=== PATIENT | male | born 1945 | race Caucasian/White ===

== ENCOUNTER 2021-09-15 13:50 | Outpatient (CLI) | payer OTHER, SELFPAY ==
--- NOTE | ~2021-09-15 | CT_ITS ---
EXAMINATION: CT lung screening DATE: 09/15/2021 14:08 INDICATION: Personal history of nicotine dependence, current smoker with 40 pack year history TECHNIQUE: Computed tomography (CT) of the chest was performed without intravenous contrast. The dose -length product (DLP) was 92.09 mGy-cm. Automated exposure control and iterative reconstruction techn [employer] were employed. COMPARISON: None FINDINGS: There is a 7 mm nodule of the right lower lobe which may be associated with an accessory fi ssure. A 3 mm nodule of the right middle lobe is associated with the minor fissure. There is mild emp hysema. Dependent atelectasis is noted. The lungs are free of focal airspace opacities. There is mild emphysema. No pleural effusion or pneumothorax. No pathologically enlarged thoracic lymph nodes are identified. The heart size is normal. There is calcified coronary artery atherosclerosis. There is mo derate thoracic spondylosis. IMPRESSION: 1. Lung-RADS category 3: Probably benign. Followup with noncontrast low-dose chest CT in 6 months is recommended. Reviewed, dictated and finalized at location A. IMPRESSION: 1. Lung-RADS category 3: Probably benign. Followup with noncontrast low-dose est CT in 6 months is recommended.
== END 2021-09-15 13:51 | disposition home or self-care (01) ==
PROVIDERS: PCP Family Medicine; Visit Provider Family Medicine
DX: Z12.2 Encounter for screening for malignant neoplasm of respiratory organs (principal); Z87.891 Personal history of nicotine dependence
CPT/HCPCS: 71271

== ENCOUNTER 2021-10-27 10:28 | Outpatient (CLI) | payer OTHER, SELFPAY ==
[2021-10-27 20:01] LABS: Hemoglobin A1C 5.7 % (<5.7)
== END 2021-10-27 10:29 | disposition home or self-care (01) ==
LOC: ANHGOSHLAB 10:29
PROVIDERS: PCP Family Medicine; Visit Provider Family Medicine
DX: R73.01 Impaired fasting glucose (principal)
CPT/HCPCS: 36415; 83036

== ENCOUNTER 2021-10-29 01:23 | Day surgery (SDC) | payer OTHER, SELFPAY ==
[2021-10-16 15:01] VITALS: BMI 25.1
[2021-10-29 08:13] VITALS: BMI 24.2
[2021-10-29 08:15] VITALS: BP 122/59; PULSE 85; RESP 18; TEMP 36.4; O2SAT 97
[2021-10-29] MEDS: LACTATED RINGERS 1,000 ML 150 ML IV CONT (08:24)
--- NOTE | 2021-10-29 08:39 | WPDANESEPPF ---
Anes - Initial Pre Proc Eval Procedure: Operation Date: 10/29/21 09:30 Proposed Procedures p Screening Colonoscopy - Joni Koo MD Date/Time: 10/29/21 08:39 Surgeon: Joni Koo MD Pre Op Diagnosis: neoplasm screening Patient Data Age: 76 Gender: M Height: 1.73 m Weight: 72.2 kg Last Vital Signs Temp 97.5 F L 10/29/21 08:15 Pulse 85 10/29/21 08:15 Resp 18 10/29/21 08:15 BP 122/59 L 10/29/21 08:15 Pulse Ox 97 10/29/21 08:15 Allergies Allergy/AdvReac Type Severity Reaction Status Date / Time No Known Allergies Allergy Verified 10/27/21 10:20 Home Medications Medication Instructions Recorded Confirmed Type cetirizine 10 mg tablet (Zyrtec) 10 mg PO HS 09/07/21 10/27/21 History meloxicam 15 mg tablet 15 mg PO DAILY 09/07/21 10/27/21 History tamsulosin 0.4 mg capsule 0.4 mg PO DAILY #30 caps 09/08/21 10/27/21 Rx atorvastatin 20 mg tablet 20 mg PO DAILY #30 tabs 09/22/21 10/27/21 Rx acetaminophen 500 mg capsule 500 mg PO HS 10/16/21 10/27/21 History Patient hx anesthesia problems: none Family hx anesthesia problems: none Results Review: All pre-operative results and documents have been reviewed as part of the pre-operative evaluation. [facility], LAT[facility] Past Medical History Medical History Allergies Arthritis Family History Family History Sibling Cancer Mother Hypertension Social History Social History Smoking packs per day: 0.5 Smoking cigarettes per day: 10.0 Years smoked: 50 Smoking pack-years: 25.00 Smoking status: Current every day smoker Tobacco type: cigarettes Alcohol intake: current Drinks per week: 1 Alcohol use details: Beer or Wine Substance use: never Substance use type: does not use Living arrangements: with family Gender identity (if verbalized by the patient): Male Sexual Orientation (if Verbalized by the Patient): Straight or Heterosexual Spiritual care concerns: No Anes - Eval Final PreProcedure Day of Procedure 10/29/21 08:39 Patient weight: normal Heart: regular rate and rhythm Lungs: clear to auscultation Airway: Mallampati scale class II Neurological: alert and oriented Last oral intake: >/= 8 hours ASA classification: II Emergent: no Anesthetic plan: proceed Anesthesia type and monitoring: general GIVS and standard monitoring Results Review: All pre-operative results and documents have been reviewed as part of the pre-operative evaluation. Informed Consent: The patient's anesthetic plan and its attendant risks and benefits were discussed with the patient/family/POA. Questions were solicited and answers provided to the satisfaction of the patient/family/POA.
--- NOTE | 2021-10-29 08:49 | PM.HPGS ---
History of Present Illness History of Present Illness Consent: Risks, benefits, and alternatives have been discussed and questions answered. Patient agrees to proceed with procedure. Chief complaint: neoplasm screening Narrative: Antoine Vaca is a 76 year old male referred for colon cancer screening. Review of Systems Review of Systems: All systems reviewed & are unremarkable except as noted in HPI and below PMFSH Past Medical History Medical History Allergies Arthritis Family History Family History Sibling Cancer Mother Hypertension Social History Social History Smoking packs per day: 0.5 Smoking cigarettes per day: 10.0 Years smoked: 50 Smoking pack-years: 25.00 Smoking status: Current every day smoker Tobacco type: cigarettes Alcohol intake: current Drinks per week: 1 Alcohol use details: Beer or Wine Substance use: never Substance use type: does not use Living arrangements: with family Gender identity (if verbalized by the patient): Male Sexual Orientation (if Verbalized by the Patient): Straight or Heterosexual Spiritual care concerns: No Meds Home Medications and Allergies Home Medications Medication Instructions Recorded Confirmed Type cetirizine 10 mg tablet (Zyrtec) 10 mg PO HS 09/07/21 10/27/21 History meloxicam 15 mg tablet 15 mg PO DAILY 09/07/21 10/27/21 History tamsulosin 0.4 mg capsule 0.4 mg PO DAILY #30 caps 09/08/21 10/27/21 Rx atorvastatin 20 mg tablet 20 mg PO DAILY #30 tabs 09/22/21 10/27/21 Rx acetaminophen 500 mg capsule 500 mg PO HS 10/16/21 10/27/21 History Allergies Allergy/AdvReac Type Severity Reaction Status Date / Time No Known Allergies Allergy Verified 10/27/21 10:20 Vital Signs Vital Signs - 24 hr 10/29/21 08:15 Temperature 36.4 C L Pulse Rate 85 Respiratory Rate 18 Blood Pressure 122/59 L Pulse Oximetry 97 Exam Resp: Auscultation: clear to auscultation bilaterally Cardio: Rate: regular rate Rhythm: regular rhythm GI: GI Palp: Yes Soft to palpation and No Tenderness to palpation present (GI) Assessment and Plan Assessment and plan (1) Colon cancer screening: Code(s): Z12.11 - Encounter for screening for malignant neoplasm of colon Status: Acute Assessment and Plan: Colonoscopy with possible biopsy or polypectomy or cautery or injection of substances.
[2021-10-29 09:45] VITALS: BP 101/41; PULSE 60; RESP 17; O2SAT 94
[2021-10-29 09:55] VITALS: BP 119/64; PULSE 65; RESP 18; O2SAT 94
[2021-10-29 10:05] VITALS: BP 138/73; PULSE 67; RESP 24; O2SAT 95
== END 2021-10-29 10:14 | disposition home or self-care (01) ==
PROVIDERS: PCP Family Medicine; Visit Provider Internal Medicine Gastroenterology
PROC: 0DJD8ZZ Inspection of Lower Intestinal Tract, Via Natural or Artificial Opening Endoscopic (ICD-10-PCS; CPT 45378; principal; 2021-10-29 09:30)
DX: Z12.11 Encounter for screening for malignant neoplasm of colon (principal); D12.8 Benign neoplasm of rectum; K64.8 Other hemorrhoids; K57.30 Diverticulosis of large intestine without perforation or abscess without bleeding; F17.210 Nicotine dependence, cigarettes, uncomplicated
CPT/HCPCS: 45380; 88305; J7120

== ENCOUNTER → 2022-03-30 10:09 | Outpatient (CLI) | payer OTHER, SELFPAY ==
--- NOTE | ~2022-03-30 | XR_ITS ---
EXAM: XR hip RT min 2V DATE: 03/30/2022 10:20 HISTORY: no injury right hip pain for several months . COMPARISON: 02/28/2013. FINDINGS: Normal mineralization. No fracture or dislocation. No lytic or blastic lesion. Degenerativ e changes in the lower lumbar spine. Mild right hip osteoarthritis. Scattered hip and pelvic enthesop athy. Old healed right pubic bone fracture. No erosion or periosteal change. Soft tissues within norm al limits. IMPRESSION: No acute osseous finding in the right hip. Reviewed, dictated and finalized at location K. SOLUTION ARCHITECT
== END ==
PROVIDERS: PCP Family Medicine; Visit Provider Family Medicine
DX: M25.551 Pain in right hip (principal)
CPT/HCPCS: 73502

== ENCOUNTER 2022-10-04 11:27 | Outpatient (CLI) | payer OTHER, SELFPAY ==
[2022-10-04 13:56] LABS: Alanine Aminotransferase 23 U/L (6-50); Albumin Level 4.1 g/dL (3.5-5.1); Alkaline Phosphatase 77 U/L (38-126); Anion Gap 6 mmol/L (8-16); Aspartate Amino Transferase 37 U/L (17-59); Bilirubin,Total 0.6 mg/dL (0.2-1.3); Blood Urea Nitrogen 16 mg/dL (9-20); Calcium 8.7 mg/dL (8.4-10.2); Carbon Dioxide 26 mmol/L (22-30); Chloride 106 mmol/L (98-107); Cholesterol 131 mg/dL (0-200); Estimated Glomerular Filt Rate > 60; Glucose 136 mg/dL (65-110); HDL Direct 39 mg/dL; Potassium 4.3 mmol/L (3.4-5.0); Sodium 138 mmol/L (137-145); Triglycerides 113 mg/dL (<150)
[2022-10-04 14:14] LABS: LDL Cholesterol Direct 60 mg/dL
[2022-10-04 14:29] LABS: Prostate Specific Antigen 1.9 ng/mL (< OR = 4.0)
== END 2022-10-04 11:28 | disposition home or self-care (01) ==
LOC: ANHGOSHLAB 11:28
PROVIDERS: PCP Family Medicine; Visit Provider Family Medicine
DX: E78.2 Mixed hyperlipidemia (principal); Z13.228 Encounter for screening for other metabolic disorders; Z12.5 Encounter for screening for malignant neoplasm of prostate
CPT/HCPCS: 36415; 80053; 80061; 84153; G0103

== ENCOUNTER → 2022-10-15 13:08 | Outpatient (CLI) | payer OTHER, SELFPAY ==
--- NOTE | ~2022-10-15 | CT_ITS ---
EXAMINATION: CT lung screening DATE: 10/15/2022 13:34 INDICATION: Greater than 40 pack-year smoking history. Lung nodules. TECHNIQUE: Computed tomography (CT) of the chest was performed without intravenous contrast. The dose -length product was 126.98 mGy-cm. Automated exposure control and iterative reconstruction technique were employed. COMPARISON: CT dated 09/15/2021 FINDINGS: There is atherosclerosis of the aorta and coronary arteries. There is ectasia of the descen ding thoracic aorta measuring 3.9 cm. There is a partially visualized infrarenal abdominal aortic ane urysm measuring 6.8 cm. Heart size normal. No significant pleural or pericardial effusion. No thoraci c lymphadenopathy. There is emphysema. No endobronchial lesions. There is a stable 6 mm right lower l obe nodule, image 65. Stable 2 mm fissural nodule on the right. Moderate thoracic spondylosis. IMPRESSION: 1. Lung-RADS category 2: Benign appearance or behavior. Continue annual screening with noncontrast lo w-dose chest CT in 12 months. 2: Infrarenal abdominal aortic aneurysm partially visualized measuring 6.8 cm. Recommend correlation with CTA of the abdomen and pelvis. Reviewed, dictated and finalized at location A. IMPRESSION: 1. Lung-RADS category 2: Benign appearance or behavior. Continue annual screeni ng with noncontrast low-dose chest CT in 12 months. 2: Infrarenal abdominal aortic aneurysm partially visualized measuring 6.8 cm. Recommend correlation with CTA of the abdomen and pelvis.
== END ==
PROVIDERS: PCP Family Medicine; Visit Provider Family Medicine
DX: Z12.2 Encounter for screening for malignant neoplasm of respiratory organs (principal); I71.43 Infrarenal abdominal aortic aneurysm, without rupture; F17.210 Nicotine dependence, cigarettes, uncomplicated
CPT/HCPCS: 71271

== ENCOUNTER → 2022-10-20 08:57 | Outpatient (CLI) | payer OTHER, SELFPAY ==
--- NOTE | ~2022-10-20 | CT_ITS ---
EXAMINATION: CTA abdomen pelvis DATE: 10/20/2022 09:26 INDICATION: Infrarenal abdominal aortic aneurysm. TECHNIQUE: Computed tomographic angiography (CTA) of the abdomen and pelvis was performed with 100 mL Omnipaque-350 intravenous contrast. Automated exposure control and iterative reconstruction techniqu e were employed. The dose-length product was 709.16 mGy-cm. Maximum intensity projection 3D-reconstru ctions of the aorta and other arteries were constructed by the technologist on a separate workstation . COMPARISON: Chest CT 10/15/2022, 09/07/2021 FINDINGS: The visualized portions of the lung bases demonstrate mild atelectasis. There is a 7 mm nod ule in right lower lobe, stable from 09/15/2021, likely benign. No pleural effusion. The heart size is normal. There are coronary artery calcifications. No pericardial effusion. There is a small sliding hiatal hernia. There is a 13 mm hyperenhancing mass in right hepatic lobe. There is a 17 mm cyst in l eft hepatic lobe. The gallbladder, spleen, pancreas, adrenal glands, and kidneys are normal. There is an umbilical hernia containing fat. There are bilateral inguinal hernias containing fat. The prostat e is moderately enlarged. There is diverticulosis of the colon without evidence of diverticulitis. Th e tip of the appendix measures 8 mm without any inflammation to suggest appendicitis. There is a 7.3 x 7.2 cm fusiform infrarenal aortic aneurysm. There is calcified atherosclerosis of the aorta and man y of the other arteries. 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 There is mild stenosis of the renal arteries. 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 There are no pathologically enlarged lymph nodes. There is no free intraperitoneal flui d. There is severe lumbar spondylosis. IMPRESSION: 1. 7.3 cm fusiform infrarenal aortic aneurysm. Surgical consultation is recommended. I called this re sult to Dr. Coulter's office. 2. 13 mm hyperenhancing liver mass. In the absence of known malignancy or chronic liver disease, this findings is likely a benign mass such as a hemangioma, focal nodular hyperplasia, or transient hepat ic attenuation difference. Reviewed, dictated and finalized at location B. IMPRESSION: 1. 7.3 cm fusiform infrarenal aortic aneurysm. Surgical consultation is recomme nded. I called this result to Dr. Coulter's office. 2. 13 mm hyperenhancing liver mass. In the absence of known malignancy or chron ic liver disease, this findings is likely a benign mass such as a hemangioma, f ocal nodular hyperplasia, or transient hepatic attenuation difference.
[2022-10-20 09:13] LABS: Estimated Glomerular Filt Rate 59
== END ==
PROVIDERS: PCP Family Medicine; Visit Provider Family Medicine
DX: I71.43 Infrarenal abdominal aortic aneurysm, without rupture (principal); R16.0 Hepatomegaly, not elsewhere classified
CPT/HCPCS: 74174; Q9967

== ENCOUNTER 2023-03-04 10:29 | Outpatient (CLI) | payer OTHER, SELFPAY ==
[2023-03-04 12:20] LABS: Anion Gap 6 mmol/L (8-16); Blood Urea Nitrogen 26 mg/dL (9-20); Carbon Dioxide 25 mmol/L (22-30); Chloride 105 mmol/L (98-107); Estimated Glomerular Filt Rate 39; Glucose 140 mg/dL (65-110); Potassium 4.5 mmol/L (3.4-5.0); Sodium 136 mmol/L (137-145)
== END 2023-03-04 10:30 | disposition home or self-care (01) ==
LOC: ANHGOSHLAB 10:30
PROVIDERS: PCP Family Medicine; Visit Provider Family Medicine
DX: N17.9 Acute kidney failure, unspecified (principal)
CPT/HCPCS: 36415; 80048

== ENCOUNTER 2023-04-06 11:01 | Outpatient (CLI) | payer OTHER, SELFPAY ==
[2023-04-06 13:25] LABS: Anion Gap 7 mmol/L (8-16); Blood Urea Nitrogen 20 mg/dL (9-20); Calcium 8.8 mg/dL (8.4-10.2); Carbon Dioxide 29 mmol/L (22-30); Chloride 105 mmol/L (98-107); Estimated Glomerular Filt Rate 46; Glucose 127 mg/dL (65-110); Potassium 4.4 mmol/L (3.4-5.0); Sodium 141 mmol/L (137-145)
== END 2023-04-06 11:02 | disposition home or self-care (01) ==
LOC: ANHGOSHLAB 11:02
PROVIDERS: PCP Family Medicine; Visit Provider Family Medicine
DX: N17.9 Acute kidney failure, unspecified (principal)
CPT/HCPCS: 36415; 80048

== ENCOUNTER 2023-07-29 10:57 | Outpatient (CLI) | payer OTHER, SELFPAY ==
[2023-07-29 18:38] LABS: Alanine Aminotransferase 17 U/L (6-50); Albumin Level 4.2 g/dL (3.5-5.1); Alkaline Phosphatase 85 U/L (38-126); Anion Gap 8 mmol/L (4-12); Aspartate Amino Transferase 38 U/L (17-59); Bilirubin,Total 0.7 mg/dL (0.2-1.3); Blood Urea Nitrogen 24 mg/dL (9-20); Calcium 9.4 mg/dL (8.4-10.2); Carbon Dioxide 26 mmol/L (22-30); Chloride 108 mmol/L (98-107); Cholesterol 139 mg/dL (0-200); Estimated Glomerular Filt Rate 49; Glucose 119 mg/dL (65-110); HDL Direct 38 mg/dL; Potassium 4.8 mmol/L (3.4-5.0); Sodium 142 mmol/L (137-145); Triglycerides 126 mg/dL (<150)
[2023-07-29 18:50] LABS: LDL Cholesterol Direct 76 mg/dL
[2023-07-29 19:09] LABS: Prostate Specific Antigen 2.2 ng/mL (< OR = 4.0)
== END 2023-07-29 10:58 | disposition home or self-care (01) ==
PROVIDERS: PCP Family Medicine; Visit Provider Family Medicine
DX: Z12.5 Encounter for screening for malignant neoplasm of prostate (principal); E78.2 Mixed hyperlipidemia; Z13.228 Encounter for screening for other metabolic disorders
CPT/HCPCS: 36415; 80053; 80061; 84153; G0103

== ENCOUNTER 2023-07-29 11:12 | Outpatient (CLI) | payer OTHER, SELFPAY ==
--- NOTE | ~2023-07-29 | XR_ITS ---
AP and lateral views of the right hip Clinical history: Pain Findings: No acute fracture or dislocation is seen. Osseous alignment is anatomic. Right hip joint sp estefany is preserved. Soft tissues are unremarkable. Impression: No significant abnormality is seen. Reviewed, dictated and finalized at location M. Impression: No significant abnormality is seen.
== END 2023-07-29 11:13 ==
LOC: GOSHIMG 11:13
PROVIDERS: PCP Family Medicine; Visit Provider Family Medicine
DX: M25.551 Pain in right hip (principal)
CPT/HCPCS: 73502

== ENCOUNTER 2024-01-12 08:38 | Outpatient (CLI) | payer OTHER, SELFPAY ==
--- NOTE | ~2024-01-12 | CT_ITS ---
EXAMINATION:CT lung screening DATE: 01/12/2024 08:53 INDICATION: Personal history of nicotine dependence. Smoker who quit 1 year ago with 40 pack year his tory. TECHNIQUE: Computed tomography (CT) of the chest was performed without intravenous contrast. Automate d exposure control and iterative reconstruction technique were employed. The dose-length product (DLP ) was 116.36 mGy-cm. COMPARISON: Chest CT 10/15/22 FINDINGS: There is mild scarring at the lung apices. There is mild emphysema. There is mild atelectas is bilaterally. There is a stable 6 mm nodule in right lower lobe. No pleural effusion. The heart siz e is normal. There are coronary artery calcifications. No pericardial effusion. There is mild bilater al gynecomastia. There is a small sliding hiatal hernia. There is a 13 mm cyst in the liver. Partiall y visualized is a stent graft in abdominal aorta. There is severe cervical spondylosis and moderate t horacic spondylosis. There is mild chronic anterior wedging of multiple vertebral bodies. IMPRESSION: 1. Lung-RADS category 2: Benign appearance or behavior. Continue annual screening with noncontrast lo w-dose chest CT in 12 months. Reviewed, dictated and finalized at location A. IMPRESSION: 1. Lung-RADS category 2: Benign appearance or behavior. Continue annual screeni ng with noncontrast low-dose chest CT in 12 months.
== END 2024-01-12 08:39 | disposition home or self-care (01) ==
LOC: GOSHIMG 08:39
PROVIDERS: PCP Family Medicine; Visit Provider Family Medicine
DX: Z12.2 Encounter for screening for malignant neoplasm of respiratory organs (principal); Z87.891 Personal history of nicotine dependence
CPT/HCPCS: 71271

== ENCOUNTER 2024-01-12 08:51 | Outpatient (CLI) | payer OTHER, SELFPAY ==
[2024-01-12 19:28] LABS: Alanine Aminotransferase 16 U/L (6-50); Alkaline Phosphatase 93 U/L (38-126); Anion Gap 9 mmol/L (4-12); Aspartate Amino Transferase 43 U/L (17-59); Bilirubin,Total 0.5 mg/dL (0.2-1.3); Blood Urea Nitrogen 18 mg/dL (9-20); Calcium 9.1 mg/dL (8.4-10.2); Carbon Dioxide 26 mmol/L (22-30); Chloride 104 mmol/L (98-107); Estimated Glomerular Filt Rate 54; Glucose 133 mg/dL (65-110); Potassium 4.2 mmol/L (3.4-5.0); Sodium 139 mmol/L (137-145)
== END 2024-01-12 08:52 | disposition home or self-care (01) ==
LOC: ANHGOSHLAB 08:53
PROVIDERS: PCP Family Medicine; Visit Provider Family Medicine
DX: Z13.228 Encounter for screening for other metabolic disorders (principal)
CPT/HCPCS: 36415; 80053

== ENCOUNTER 2024-08-06 13:44 | Outpatient (CLI) | payer OTHER, SELFPAY ==
--- OUTSIDE RECORDS SUMMARY | 2024-08-06 13:49 | XMS_ITS | Referral Summary ---
Author Organization [facility] Address [address] [place] [address] Care Team Providers Care Physician President Name Role Phone Marvin Coulter DO Primary Care Provider [phone] Elliott Nicholson MD Unavailable [phone] Allergies No known active allergies Medications atorvastatin (LIPITOR) 20 mg tablet Take 1 tablet (20 mg total) by mouth nightly 09/20/2022 Active tamsulosin (FLOMAX) 0.4 mg extended release capsule Take 1 capsule (0.4 mg total) by mouth daily 09/20/2022 Active acetaminophen (TYLENOL) 500 mg tablet Take 1 tablet (500 mg total) by mouth nightly Active cetirizine (ZyrTEC) 10 mg tablet Take 1 tablet (10 mg total) by mouth daily Active propranolol LA (INDERAL LA) 60 mg 24 hr capsule Take 1 capsule (60 mg total) by mouth daily 11/19/2022 Active aspirin 81 mg enteric coated tablet Take 1 tablet (81 mg total) by mouth daily 90 tablet 1 09/25/2023 5 Active Active Problems Problem Noted Date Diagnosed Date Abnormal EKG 09/16/2023 AAA (abdominal aortic aneurysm) without rupture 11/30/2022 Assessment & Plan (03/08/2024 11:55 AM SALES TECHNICIAN): Current duplex shows a patent endovascular graft with moapa aneurysmal sac measuring 6.4 x 6.7 cm. Continue aspirin statin therapy and good plaques. Assessment & Plan (03/10/2023 2:17 PM SALES TECHNICIAN): Status post percutaneous EVAR. CT shows stent graft in good position with no endoleak. Follow-up 1 year with duplex. Assessment & Plan (12/15/2022 9:49 AM CDT): Status post P EVAR. Check CTA follow-up 2-3 weeks Preop cardiovascular exam 11/23/2022 Abdominal aortic aneurysm (AAA) without rupture 11/03/2022 Assessment & Plan (11/17/2022 9:53 AM CDT): Patient has the 7.1 cm fusiform infrarenal abdominal aortic aneurysm. Have recommended proceeding with percutaneous endovascular aneurysm repair as his anatomy is favorable. The procedure indications and all associated risks have been explained. He understands and agrees to proceed. Assessment & Plan (11/03/2022 10:43 AM CDT): 6.5 cm fusiform infrarenal abdominal aortic aneurysm partially visualized on surveillance CT scan of the chest. Will obtain CT angiogram abdomen and pelvis for more complete evaluation. Patient to follow-up in 1-2 weeks with surgical planning at that point. Primary hypertension 11/03/2022 Assessment & Plan (11/17/2022 9:53 AM CDT): Hypertension chronic and controlled. Continue amlodipine. Assessment & Plan (11/03/2022 10:43 AM CDT): Hypertension chronic and controlled. Continue amlodipine. Mixed hyperlipidemia 11/03/2022 Assessment & Plan (11/17/2022 9:54 AM CDT): Hyperlipidemia chronic and controlled. Continue Lipitor. Assessment & Plan (11/03/2022 10:43 AM CDT): Hyperlipidemia chronic and controlled. Continue Lipitor 20 mg daily. Arthritis 10/25/2022 Immunizations Immunization Administration Dates Next Due Pneumococcal Conjugate Pcv20 09/13/2021 Social History Tobacco Use Types Packs/Day Years Used Date Smoking Tobacco: Former Cigarettes 0.3 55.2 1 968 - 05/2022 Tobacco Cessation:Counseling Given: Not Answered Social Connection and Isolat ion Panel [NHANES] Answer Date Recorded In a typical week, how many times do you talk on the phone with family, friends, or neighbors? More than three times a week 11/30/2022 How often do you get togethe r with friends or relatives? More than three times a week 11/30/2022 How often do you attend chur ch or restorationist services? Never 11/30/2022 Do you belong to any clubs o r organizations such as uatsdin groups, unions, fraternal or athletic groups, or school groups? No 11/30/2022 How often do you attend meet ings of the clubs or organizations you belong to? Never 11/30/2022 Are you , , di vorced, , never , or living with a partner? 11/30/2022 AUDIT-C Answer Date Recorded Q1: How often do you have a drink containing alc ohol? Monthly or less 11/30/2022 Q2: How many drinks containi ng alcohol do you have on a typical day when you are drinking? 1 or 2 11/30/2022 Q3: How often do you have si x or more drinks on one occasion? Never 11/30/2022 Overall Financial Resource Strain (CARDIA) Answe r Date Recorded How hard is it for you to pa y for the very basics like food, housing, medical care, and heating? Not hard at all 11/30/2022 Hunger Vital Sign Answer Date Recorded Within the past 12 months, y ou worried that your food would run out before you got the money to buy more. Never true 12/01/19 23 Within the past 12 months, t he food you bought just didn't last and you didn't have money to get more. Never true 11/30/2022 PRAPARE - Transportation Answer Date Re corded In the past 12 months, has l ack of transportation kept you from medical appointments or from getting medications? No 11/19 In the past 12 months, has l ack of transportation kept you from meetings, work, or from getting things needed for daily living? No 11/30/2022 Housing Stability Vital Sign Answer Jeramie e Recorded In the last 12 months, was t here a time when you were not able to pay the mortgage or rent on time? No 11/30/2022 In the last 12 months, how many places have you lived? 1 11/30/2022 In the last 12 months, was t here a time when you did not have a steady place to sleep or slept in a mcc (including now)? No 11/30/2022 Personal Safety Answer Date Recorded Have you ever been in or are you currently in a harmful physical or emotional relationship or is someone making you feel afraid or unsafe? Denies 11/30/2022 Sex and Gender Information Value Date Recorded Sex Assigned at Not on file Legal Sex Male 11:39 AM SALES TECHNICIAN Gender Identity Not on file Sexual Orientation Not on file Last Filed Vital Signs Vital Sign Reading Time Taken Comments Blood Pressure 194/75 03/07/2024 10:33 AM SALES TECHNICIAN Pulse 64 03/07/2024 10:33 AM SALES TECHNICIAN Temperature 36.6 C (97.9 F) 12/01/2022 11:14 AM CDT Respiratory Rate 18 09/16/2023 10:54 AM CDT Oxygen Saturation 94% 10/11/2023 1:20 PM CDT Inhaled Oxygen Concentration - - Weight 77.6 kg (171 lb) 03/07/2024 10:33 AM SALES TECHNICIAN Height 172.7 cm (5' 8 ) 03/07/2024 10:33 AM SALES TECHNICIAN Body Mass Index 26 03/07/2024 10:33 AM SALES TECHNICIAN Plan of Treatment Not on file Medical Devices Implanted Type Area Epidemiology Investigator Device Identifier Shelf Expiration Date Model / Serial / Lot Treo Stent-Graft System Implanted:Qt y: 1 on 11/30/2022 by Elliott Nicholson MD at [facility] Endoprosthesis Left: Iliac [employer] 11/02/2025 28-L2-1 3-140U / / [id number] Treo Abdominal Stent Graft System Implanted:Qt y: 1 on 11/30/2022 by Elliott Nicholson MD at [facility] Graft N/A: Abdominal Aorta [employer] [id number] 02/29/2024 28-C2-3 0-040U / / [id number] Description:Aortic Cuff [employer] Device Clsr Perclose Prostyle Sut-Mediatd Closure-Repa ir Sys [id number] - [id number] Implanted:Qt y: 5 on 11/30/2022 by Elliott Nicholson MD at [facility] Bilateral: Groin [employer] 06/18/2024 93477-0 [id number] / / [id number] Treo Stent-Graft System Implanted:Qt y: 1 on 11/30/2022 by Elliott Nicholson MD at [facility] N/A: Aorta [employer] 07/23/2023 28-B2-3 0-080U / / [id number] [employer] Johanny Stent Graft Iliac Leg Extension 13/63f530ct Treo Polyester Nitinol 06-K3-90-120 u - [id number] Implanted:Qt y: 1 on 11/30/2022 by Elliott Nicholson MD at [facility] Right: Iliac [employer] Johanny 10/16/2025 28-L2-1 3-120U / / [id number] Procedures Procedure Name Priority Date/Time Associated Diagnosis Comments CTA ABDOMEN PELVIS W WO CONTRAST Schedule Routine, Read Routine (OP Routine) 02/23/2023 12:33 PM SALES TECHNICIAN Aftercare following surgery of the circulatory system from Last 3 Months or Most Recently Relevant to Health Maintenance Results * CTA Abdomen Pelvis (02/23/2023 12:33 PM SALES TECHNICIAN) Anatomical Region Laterality Modality Body N/A Computed Tomogra phy 02/24/2023 10:4 4 AM SALES TECHNICIAN Narrative 02/24/2023 11:06 AM SALES TECHNICIAN EXAM DESCRIPTION: CTA ABDOMEN PELVIS REASON FOR STUDY: History of AAA status post repair for follow-up. TECHNIQUE: CTA scan of the abdomen and pelvis performed without and with intravenous and without oral contrast using helical scanning technique with dynamic intravenous contrast injection. Precontrast, arterial, and portal venous phase images of the abdomen and pelvis were acquired. Images reviewed with lung, soft tissue and bone windows. Reconstructed coronal and sagittal MPR images reviewed. All images stored on PACS. 3D MIP images rendered on scanning unit and reviewed at time of interpretation. Automated exposure control was used as a dose optimization technique for this examination. CONTRAST TYPE/DOSE: 100mL of IOVERSOL 350 MG IODINE/ML INTRAVENOUS SYRINGE injected via intravenous COMPARISON: CT dated November 10, 2022 REFERENCE: Unless otherwise specified, no follow-up imaging is recommended for incidental renal and adrenal lesions per consensus recommendations based on imaging criteria. Further lab evaluation could be pursued based on clinical findings. Management of the Incidental Renal Mass on CT: A White Paper of the ACR Incidental Findings Committee. J Am Lyly Radiol. 2018 Apr;15(2):264-273. Management of Incidental Adrenal Masses: A White Paper of the ACR Incidental Findings Committee. J Am Lyly Radiol. 2017 Oct;14(8):7637-2352. FINDINGS: VASCULATURE: On the initial non contrasted portion of the examination there is extensive calcified atherosclerosis. There is a large infrarenal abdominal aorta status post endovascular stenting with paired stents extending into the bilateral common iliac artery. On arterial phase imaging the stent is widely patent. On more delayed imaging there is no convincing evidence of a endovascular leak. A pseudo aneurysmal sac is seen measuring maximum of 6.7 cm (series 8, image 41; previously 6.7 cm remeasured). No large vessel occlusion. CELIAC TRUNK: High-grade ostial stenosis SUPERIOR MESENTERIC ARTERY: High-grade ostial stenosis RIGHT RENAL ARTERY: High-grade ostial stenosis LEFT RENAL ARTERY: This high-grade ostial stenosis INFERIOR MESENTERIC ARTERY: Not identified AORTA: As above ILIAC ARTERIES: No flow limiting stenosis, dissection, or aneurysm. LOWER CHEST: No significant pulmonary abnormalities. No effusion. Mild fibrotic changes in lung bases. LIVER: Normal size. No identified cystic or solid masses. GALLBLADDER: No stones identified. No wall thickening or inflammatory changes. BILE DUCTS: No intrahepatic or extrahepatic ductal dilatation. SPLEEN: Normal size. No focal lesions. PANCREAS: No identified cystic or solid masses. No significant calcifications. No adjacent inflammation or peripancreatic fluid collections. Pancreatic duct not dilated. ADRENALS: Normal. KIDNEYS/URINARY TRACT: No identified significant cystic or solid masses. No stones. No hydronephrosis or hydroureter. Symmetric enhancement. Normal bladder. GI: No dilated bowel loops. No obvious wall thickening. There is extensive colonic diverticulosis. PERITONEUM: No ascites or free air. RETROPERITONEUM: No mass or adenopathy. REPRODUCTIVE: The prostate is enlarged measuring 5.2 cm in transverse dimension. MUSCULOSKELETAL: No significant abnormality. OTHER: No other abnormality. IMPRESSION: Large infrarenal abdominal aorta status post endovascular stenting with paired stents extending into the bilateral common iliac artery. The stent is widely patent without evidence of a endoleak. The pseudo aneurysmal sac is stable in size. 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 Extensive colonic diverticulosis. Prostatomegaly. Mild fibrotic changes in lung bases. THIS IS AN ELECTRONICALLY VERIFIED FINAL REPORT 02/24/2023 11:06 AM - Electronically signed by Tera AMBROSIO T: Report ID: [id number] Reading Location: [id number] Procedure Note Tera Norwood MD - 02/24/2023 EXAM DESCRIPTION: CTA ABDOMEN PELVIS REASON FOR STUDY: History of AAA status post repair for follow-up. TECHNIQUE: CTA scan of the abdomen and pelvis performed without and with intravenous and without oral contrast using helical scanning techniquewith dynamic intravenous contrast injection. Precontrast, arterial, and portal venous phase images of the abdomen and pelvis were acquired. Images reviewed with lung, soft tissue and bone windows. Reconstructed coronaland sagittal MPR images reviewed. All images stored on PACS. 3D MIP images rendered on scanning unit and reviewed at time of interpretation.Automated exposure control was used as a dose optimization technique for this examination. CONTRAST TYPE/DOSE: 100mL of IOVERSOL 350 MG IODINE/ML INTRAVENOUSSYRINGE injected via intravenous COMPARISON: CT dated November 10, 2022 REFERENCE: Unless otherwise specified, no follow-up imaging is recommendedfor incidental renal and adrenal lesions per consensus recommendations basedon imaging criteria. Further lab evaluation could be pursued based onclinical findings. Management of the Incidental Renal Mass on CT: A White Paper of the ACR Incidental Findings Committee. J Am Lyly Radiol. 2018 Apr;15(2):264-273. Management of Incidental Adrenal Masses: A White Paper of the ACRIncidental Findings Committee. J Am Lyly Radiol. 2017 Oct;14(8):6273-7886. FINDINGS: VASCULATURE: On the initial non contrasted portion of the examination there is extensive calcified atherosclerosis. There is alarge infrarenal abdominal aorta status post endovascular stenting with paired stents extending into the bilateral common iliac artery. On arterial phase imaging the stent is widely patent. On more delayedimaging there is no convincing evidence of a endovascular leak. A pseudoaneurysmal sac is seen measuring maximum of 6.7 cm (series 8, image 41; previously6.7 cm remeasured). No large vessel occlusion. CELIAC TRUNK: High-grade ostial stenosis SUPERIOR MESENTERIC ARTERY: High-grade ostial stenosis RIGHT RENAL ARTERY: High-grade ostial stenosis LEFT RENAL ARTERY: This high-grade ostial stenosis INFERIOR MESENTERIC ARTERY: Not identified AORTA: As above ILIAC ARTERIES: No flow limiting stenosis, dissection, or aneurysm. LOWER CHEST: No significant pulmonary abnormalities. No effusion. Mild fibrotic changes in lung bases. LIVER: Normal size. No identified cystic or solid masses. GALLBLADDER: No stones identified. No wall thickening or inflammatory changes. BILE DUCTS: No intrahepatic or extrahepatic ductal dilatation. SPLEEN: Normal size. No focal lesions. PANCREAS: No identified cystic or solid masses. No significant calcifications. No adjacent inflammation or peripancreatic fluidcollections. Pancreatic duct not dilated. ADRENALS: Normal. KIDNEYS/URINARY TRACT: No identified significant cystic or solid masses.No stones. No hydronephrosis or hydroureter. Symmetric enhancement. Normal bladder. GI: No dilated bowel loops. No obvious wall thickening. There isextensive colonic diverticulosis. PERITONEUM: No ascites or free air. RETROPERITONEUM: No mass or adenopathy. REPRODUCTIVE: The prostate is enlarged measuring 5.2 cm in transverse dimension. MUSCULOSKELETAL: No significant abnormality. OTHER: No other abnormality. IMPRESSION: Large infrarenal abdominal aorta status post endovascular stenting with paired stents extending into the bilateral common iliac artery. The stentis widely patent without evidence of a endoleak. The pseudo aneurysmal sacis stable in size. 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 Extensive colonic diverticulosis. Prostatomegaly. Mild fibrotic changes in lung bases. THIS IS AN ELECTRONICALLY VERIFIED FINAL REPORT 02/24/2023 11:06 AM - Electronically signed by Tera AMBROSIO T: Report ID: [id number] Reading Location: [place] [address] Elliott Nicholson MD IM CT PROCEDURES Final Re sult from Last 3 Months or Most Recently Relevant to Health [place] [address] [facility] [place] [address] [facility] Advance Directives For more information, please contact: [phone] * Full Code (Latest Code Status on File) Date Activated Date Inactivated Comments 11/30/2022 1:56 PM 12/01/2022 8:10 PM Care Teams Physician President Relationship Specialty Start Date End Date Marvin Coulter DO [address] [place] [id number] PCP - General Family Medicine 10/21/22 Elliott Nicholson MD [address] [place] [address] Surgeon Vascular Surgery 11/11/22
--- OUTSIDE RECORDS SUMMARY | 2024-08-06 13:49 | XMS_ITS | Continuity of Care Document ---
Author Organization [facility] Address [address] [place] [address] Phone Care Team Providers Care Steam Trap Man Name Role Phone Reed Jiménez MD Unavailable Unavailable Procedures Procedure Date Office/outpatient Visit, [facility] Advance Directives Directive Yes / No Effective Date File Name No Information Encounters Encounter Description Practice Location Reason(s) For Visit Diagnoses Date Provider Providers Copied on Encounter Office/outpat ient Visit, [facility], [address], [place], [place], [id number], [place] tel:[phone] [facility] Professional No Information [address] [facility] [place], [place], [id number], [place]. tel:[phone] Referring Provider: Randall Taylor OD, [facility] [address] [place], [address]. tel:[phone] Family History Family Member Type Diagnosis Age At Onset No Information Payers Payer name Insurance type Covered alliance party ID Authoriza tion(s) No Information Social History Type Description Quantity Date Captured Comments Sex Male Smoking Status No Information Chief Complaint And Reason For Visit No Information Reason For Referral Reason For Referral No Information History Of Present Illness Encounter Date Complaint History Of Prese nt Illness No Information Functional Status Date Functional Assessmen t No Information Instructions Date Instruction Additional Infor mation No Information Assessments Type Assessment Date No Information Patient Care Teams Name Effective Dates (start - stop) Status Members No Information
--- OUTSIDE RECORDS SUMMARY | 2024-08-06 13:49 | XMS_ITS | Clinical Summary ---
Author Organization [facility] at the [facility] Office [facility] Address [address] [place] [address] Care Team Providers Care Special Agent Group Insurance Name Role Phone Marvin Coulter DO Primary Care Provider [phone] Elliott Nicholson MD Unavailable [phone] Allergies No known active allergies Medications [...] 11/30/2022 Assessment & Plan (03/08/2024 11:55 AM COVER REMOVER): Current duplex shows a patent endovascular graft with [place] aneurysmal sac measuring 6.4 x 6.7 cm. Continue aspirin statin therapy and good plaques. Assessment & Plan (03/10/2023 2:17 PM COVER REMOVER): Status post percutaneous EVAR. CT shows stent [...] Dates Next Due Pneumococcal Conjugate Pcv20 09/13/2021 Surgical History Surgery Date Site/Laterality Comments HERNIA REPAIR AT 11 YEARS OLD TONSILLECTOMY COLONOSCOPY 03/21/2021 - 03/20/2022 N/A CATARACT EXTRACTION 03/21/2021 - 03/20/2022 Bilateral Nov and Dec ENDOSCOPIC AORTIC REPAIR 11/30/2022 PEVAR w/ TREO stent graft ABDOMINAL AORTIC ANEURYSM REPAIR 08/19/2022 Medical History Medical History Date Comments Arthritis HTN (hypertension) Hyperlipidemia Delayed emergence from general anesthesia Allergic rhinitis Family History Medical History Relation Name Comments Hypertension Mother Relation Name Status Comments Father Mother Social History Tobacco Use Types Packs/Day Years [...] 11/30/2022 How often do you attend chur or yazidism services? Never 11/30/2022 Do you belong to any clubs o r organizations such as taoism groups, unions, fraternal or athletic groups, or [...] place to sleep or slept in a halfway (including now)? No 11/30/2022 Personal Safety Answer Date Recorded Have you ever been in or are you currently in a harmful physical or emotional relationship or is someone making you feel afraid or unsafe? Denies 11/30/2022 Sex and Gender Information Value Date Recorded Sex Assigned at Not on file Legal Sex Male 11:39 AM COVER REMOVER Gender Identity Not on file Sexual Orientation Not on file Obstetrics History Last Filed Vital Signs Vital Sign Reading Time Taken Comments Blood Pressure 194/75 03/07/2024 10:33 AM COVER REMOVER Pulse 64 03/07/2024 10:33 AM COVER REMOVER Temperature 36.6 C (97.9 F) 12/01/2022 11:14 AM CDT Respiratory Rate 18 09/16/2023 10:54 AM CDT Oxygen Saturation 94% 10/11/2023 1:20 PM CDT Inhaled Oxygen Concentration - - Weight 77.6 kg (171 lb) 03/07/2024 10:33 AM COVER REMOVER Height 172.7 cm (5' 8 ) 03/07/2024 10:33 AM COVER REMOVER Body Mass Index 26 03/07/2024 10:33 AM COVER REMOVER Plan of Treatment Health Maintenance Due Date Last Done Comments Depression Screening 1945 Hepatitis C Screening 1945 DTaP/Tdap/Td Vaccine (1 - Tdap) 08/26/1958 Hepatitis B Screening 08/26/1965 Zoster Vaccine (1 of 2) 08/26/1997 Well Visit 65+ 08/26/2012 Fall Risk Assessment 12/02/2023 12/01/2022 Covid-19 Vaccine (2023-2 5 season) 2024 01/23/2024, 02/07/2023, 01/07/2022, Additional history exists Influenza Vaccine (Season Ended) 2024 Pneumococcal vaccine 65+ Completed 09/13/2021 Abdominal Aortic Aneurysm (A AA) Screen Completed 03/07/2024, 03/07/2024, 03/02/2023, Additional history exists Medical Devices Implanted Type Area Wide Load Escort Device Identifier Shelf Expiration Date Model / Serial / Lot Treo Stent-Graft System Implanted:Qt y: 1 on 11/30/2022 by Elliott Nicholson MD at [facility] Endoprosthesis Left: Iliac [employer] 11/02/2025 28-L2-1 3-140U / / [id number] Treo Abdominal Stent Graft System Implanted:Qt y: 1 on 11/30/2022 by Elliott Nicholson MD at [facility] Graft N/A: Abdominal Aorta Terumo [employer] [id number] 02/29/2024 28-C2-3 0-040U / / [id number] Description:Aortic Cuff Lomax Vascular Device Clsr Perclose Prostyle Sut-Mediatd Closure-Repa ir Sys 64569-24 - [id number] Implanted:Qt y: 5 on 11/30/2022 by Elliott Nicholson MD at [facility] Bilateral: Groin Lomax Vascular 06/18/2024 03994-0 3 / / [id number] Treo Stent-Graft System Implanted:Qt y: 1 on 11/30/2022 by Elliott Nicholson MD at [facility] N/A: Aorta [employer] 07/23/2023 28-B2-3 0-080U / / [id number] Terumo Medical Johanny Stent Graft Iliac Leg Extension 13/59m031bw Treo Polyester Nitinol 77-N6-87-120 u - [id number] Implanted:Qt y: 1 on 11/30/2022 by Elliott Nicholson MD at [facility] Right: Iliac [employer] Johanny 10/16/2025 28-L2-1 3-120U / / [id number] Procedures Procedure Name Priority Date/Time Associated Diagnosis Comments CTA ABDOMEN PELVIS W WO CONTRAST Schedule Routine, Read Routine (OP Routine) 02/23/2023 12:33 PM COVER REMOVER Aftercare following surgery of the circulatory system from Last 3 Months or Most Recently Relevant to Health Maintenance Results * CTA Abdomen Pelvis (02/23/2023 12:33 PM COVER REMOVER) Anatomical Region Laterality Modality Body N/A Computed Tomogra phy 02/24/2023 10:4 4 AM COVER REMOVER Narrative 02/24/2023 11:06 AM COVER REMOVER EXAM DESCRIPTION: CTA ABDOMEN PELVIS REASON FOR [...] Findings Committee. J Am Lyly Radiol. 2017 Oct;14(8):1280-3795. FINDINGS: VASCULATURE: On the initial non contrasted [...] signed by Tera AMBROSIO T: Report ID: [id number] Reading Location: [id number] Procedure Note Tera Norwood MD - 02/24/2023 [...] Findings Committee. J Am Lyly Radiol. 2017 Oct;14(8):6433-9351. FINDINGS: VASCULATURE: On the initial non contrasted [...] signed by Tera AMBROSIO T: Report ID: [id number] Reading Location: [place] [address] Elliott Nicholson MD IMG CT PROCEDURES Final Re sult from Last 3 Months or Most Recently Relevant to Health Maintenance Insurance [facility] Advance Directives For more information, please contact: [phone] * Full Code (Latest Code Status on File) Date Activated Date Inactivated Comments 11/30/2022 1:56 PM 12/01/2022 8:10 PM Care Teams Special Agent Group Insurance Relationship Specialty Start Date End Date Marvin Coulter DO [facility] [place] [address] PCP - General Family Medicine 10/21/22 Elliott Nicholson MD [address] [place] [address] Surgeon Vascular Surgery 11/11/22
[2024-08-06 20:05] LABS: Add Urine Microscopic? YES; Appearance Urine Clear (Clear); Bacteria Urine None Seen /hpf; Bilirubin Urine Negative (Negative); Blood Urine Negative (Negative); Color Urine Yellow (Yellow); Glucose Urine UA Negative (Negative); Ketones Urine Negative (Negative); Leukocyte Esterase Ur Negative LEU/UL (Negative); Nitrate Urine Negative (Negative); Non Pathogenic Casts 0-2; Protein Urine 2+ mg/dL (Negative); RBC Urine 0-2 /hpf (0-2); Specific Grav Ur 1.016 (1.001-1.035); Squamous Epithelial Cell Urine None Seen /hpf (Few); Urobilinogen Urine 0.2 mg/dL (<2.0); WBC Urine 0-5 /hpf (0-3)
== END 2024-08-06 13:45 | disposition home or self-care (01) ==
LOC: ANHGOSHLAB 13:45
PROVIDERS: PCP Internal Medicine; Visit Provider Internal Medicine
DX: R10.9 Unspecified abdominal pain (principal)
CPT/HCPCS: 81001

== ENCOUNTER 2024-08-10 11:33 | Outpatient (CLI) | payer OTHER, SELFPAY ==
--- OUTSIDE RECORDS SUMMARY | 2024-08-10 11:36 | XMS_ITS | Continuity of Care Document ---
Author Organization [facility] Address [address] [place] [address] Phone Care Team Providers Care Clam Grower Name Role Phone Reed Jiménez MD Unavailable Unavailable Procedures Procedure Date Office/outpatient Visit, [facility] Advance Directives Directive Yes / No Effective Date File Name No Information Encounters Encounter Description Practice Location Reason(s) For Visit Diagnoses Date Provider Providers Copied on Encounter Office/outpat ient Visit, Est [facility], [address], [place], [place], [id number], [place] tel:[phone] [facility] Professional No Information [address] [facility] [place], [place], [id number], [place]. tel:[phone] Referring Provider: Randall Taylor OD, [facility] [address] [place], [address]. tel:[phone] Family History Family Member Type Diagnosis Age At Onset No Information Payers Payer name Insurance type Covered republican ID Authoriza tion(s) No Information Social History [...]
--- OUTSIDE RECORDS SUMMARY | 2024-08-10 11:36 | XMS_ITS | Referral Summary ---
Author Organization [facility] at the [facility] Office Center Address [address] [place] [address] Care Team Providers Care Hydrostatic Tubing Tester Name Role Phone Marvin Coulter DO Primary Care Provider [phone] Elliott Nicholson MD Unavailable [phone] Allergies No known active allergies Medications [...] 11/30/2022 Assessment & Plan (03/08/2024 11:55 AM DESIGN ARCHITECT): Current duplex shows a patent endovascular graft with [place] aneurysmal sac measuring 6.4 x 6.7 cm. Continue aspirin statin therapy and good plaques. Assessment & Plan (03/10/2023 2:17 PM DESIGN ARCHITECT): Status post percutaneous EVAR. CT shows stent [...] often do you attend chur ch or oriental orthodox services? Never 11/30/2022 Do you belong to any clubs o r organizations such as taoist groups, unions, fraternal or athletic groups, or [...] place to sleep or slept in a longterm (including now)? No 11/30/2022 Personal Safety Answer Date Recorded Have you ever been in or are you currently in a harmful physical or emotional relationship or is someone making you feel afraid or unsafe? Denies 11/30/2022 Sex and Gender Information Value Date Recorded Sex Assigned at Not on file Legal Sex Male 11:39 AM DESIGN ARCHITECT Gender Identity Not on file Sexual Orientation Not on file Last Filed Vital Signs Vital Sign Reading Time Taken Comments Blood Pressure 194/75 03/07/2024 10:33 AM DESIGN ARCHITECT Pulse 64 03/07/2024 10:33 AM DESIGN ARCHITECT Temperature 36.6 C (97.9 F) 12/01/2022 11:14 AM CDT Respiratory Rate 18 09/16/2023 10:54 AM CDT Oxygen Saturation 94% 10/11/2023 1:20 PM CDT Inhaled Oxygen Concentration - - Weight 77.6 kg (171 lb) 03/07/2024 10:33 AM DESIGN ARCHITECT Height 172.7 cm (5' 8 ) 03/07/2024 10:33 AM DESIGN ARCHITECT Body Mass Index 26 03/07/2024 10:33 AM DESIGN ARCHITECT Plan of Treatment Not on file Medical Devices Implanted Type Area [employer] Principal Device Identifier Shelf Expiration Date Model / Serial / Lot Treo Stent-Graft System Implanted:Qt y: 1 on 11/30/2022 by Elliott Nicholson MD at [facility] Endoprosthesis Left: Iliac [employer] 11/02/2025 28-L2-1 3-140U / / [id number] Treo Abdominal Stent Graft System Implanted:Qt y: 1 on 11/30/2022 by Elliott Nicholson MD at [facility] Graft N/A: Abdominal Aorta Terumo Card[employer] V[employer] [id number] 02/29/2024 28-C2-3 0-040U / / [id number] Description:Aortic Cuff Lomax Vascular Device Clsr Perclose Prostyle Sut-Mediatd Closure-Repa ir Sys 66139-90 - [id number] Implanted:Qt y: 5 on 11/30/2022 by Elliott Nicholson MD at [facility] Bilateral: Groin [employer] Vascular 06/18/2024 45403-7 3 / / [id number] Treo Stent-Graft System Implanted:Qt y: 1 on 11/30/2022 by Elliott Nicholson MD at [facility] N/A: Aorta [employer] 07/23/2023 28-B2-3 0-080U / / [id number] Terumo Medical Johanny Stent Graft Iliac Leg Extension 13/11j358yn Treo Polyester Nitinol 28-V8-87-120 u - [id number] Implanted:Qt y: 1 on 11/30/2022 by Elliott Nicholson MD at [facility] Right: Iliac [employer] Johanny 10/16/2025 28-L2-1 3-120U / / [id number] Procedures Procedure Name Priority Date/Time Associated Diagnosis Comments CTA ABDOMEN PELVIS W WO CONTRAST Schedule Routine, Read Routine (OP Routine) 02/23/2023 12:33 PM DESIGN ARCHITECT Aftercare following surgery of the circulatory system from Last 3 Months or Most Recently Relevant to Health Maintenance Results * CTA Abdomen Pelvis (02/23/2023 12:33 PM DESIGN ARCHITECT) Anatomical Region Laterality Modality Body N/A Computed Tomogra phy 02/24/2023 10:4 4 AM DESIGN ARCHITECT Narrative 02/24/2023 11:06 AM DESIGN ARCHITECT EXAM DESCRIPTION: CTA ABDOMEN PELVIS REASON FOR [...] Findings Committee. J Am Lyly Radiol. 2017 Oct;14(8):0073-0022. FINDINGS: VASCULATURE: On the initial non contrasted [...] signed by Tera AMBROSIO T: Report ID: [id number] Reading Location: [id number] Procedure Note Tera Norwood MD - 02/24/2023 [...] Findings Committee. J Am Lyly Radiol. 2017 Oct;14(8):2432-5569. FINDINGS: VASCULATURE: On the initial non contrasted [...] signed by Tera AMBROSIO T: Report ID: [id number] Reading Location: [place] [address] Elliott Nicholson MD IM CT PROCEDURES Final Re sult from Last 3 Months or Most Recently Relevant to [place] [address] [facility] [place] [address] [facility] Advance Directives For more information, please contact: [phone] * Full Code (Latest Code Status on File) Date Activated Date Inactivated Comments 11/30/2022 1:56 PM 12/01/2022 8:10 PM Care Teams Hydrostatic Tubing Tester Relationship Specialty Start Date End Date Marvin Coulter DO [address] [place] [address] PCP - General Family Medicine 10/21/22 Elliott Nicholson MD [address] [place] [address] Surgeon Vascular Surgery 11/11/22
--- OUTSIDE RECORDS SUMMARY | 2024-08-10 11:36 | XMS_ITS | Clinical Summary ---
Author Organization [facility] at the [facility] Office Center Address [address] [place] [address] Care Team Providers Care Knife Setter Name Role Phone Marvin Coulter DO Primary Care Provider [phone] Elliott Nicholson MD Unavailable [phone] Allergies No known active allergies Medications [...] 11/30/2022 Assessment & Plan (03/08/2024 11:55 AM RECEPTIONIST AIRLINE LOUNGE): Current duplex shows a patent endovascular graft with [place] aneurysmal sac measuring 6.4 x 6.7 cm. Continue aspirin statin therapy and good plaques. Assessment & Plan (03/10/2023 2:17 PM RECEPTIONIST AIRLINE LOUNGE): Status post percutaneous EVAR. CT shows stent [...] How often do you attend chur or orthodox services? Never 11/30/2022 Do you belong to any clubs o r organizations such as protestant groups, unions, fraternal or athletic groups, or [...] place to sleep or slept in a assisted (including now)? No 11/30/2022 Personal Safety Answer Date Recorded Have you ever been in or are you currently in a harmful physical or emotional relationship or is someone making you feel afraid or unsafe? Denies 11/30/2022 Sex and Gender Information Value Date Recorded Sex Assigned at Not on file Legal Sex Male 11:39 AM RECEPTIONIST AIRLINE LOUNGE Gender Identity Not on file Sexual Orientation Not on file Obstetrics History Last Filed Vital Signs Vital Sign Reading Time Taken Comments Blood Pressure 194/75 03/07/2024 10:33 AM RECEPTIONIST AIRLINE LOUNGE Pulse 64 03/07/2024 10:33 AM RECEPTIONIST AIRLINE LOUNGE Temperature 36.6 C (97.9 F) 12/01/2022 11:14 AM CDT Respiratory Rate 18 09/16/2023 10:54 AM CDT Oxygen Saturation 94% 10/11/2023 1:20 PM CDT Inhaled Oxygen Concentration - - Weight 77.6 kg (171 lb) 03/07/2024 10:33 AM RECEPTIONIST AIRLINE LOUNGE Height 172.7 cm (5' 8 ) 03/07/2024 10:33 AM RECEPTIONIST AIRLINE LOUNGE Body Mass Index 26 03/07/2024 10:33 AM RECEPTIONIST AIRLINE LOUNGE Plan of Treatment Health Maintenance Due Date [...] history exists Medical Devices Implanted Type Area Coal Chemist Device Identifier Shelf Expiration Date Model / Serial / Lot Treo Stent-Graft System Implanted:Qt y: 1 on 11/30/2022 by Elliott Nicholson MD at [facility] Endoprosthesis Left: Iliac [employer] 11/02/2025 28-L2-1 3-140U / / [id number] Treo Abdominal Stent Graft System Implanted:Qt y: 1 on 11/30/2022 by Elliott Nicholson MD at [facility] Graft N/A: Abdominal Aorta Terumo [employer] V[employer] [id number] 02/29/2024 28-C2-3 0-040U / / [id number] Description:Aortic Cuff Lomax Vascular Device Clsr Perclose Prostyle Sut-Mediatd Closure-Repa ir Sys 58828-63 - [id number] Implanted:Qt y: 5 on 11/30/2022 by Elliott Nicholson MD at [facility] Bilateral: Groin [employer] Vascular 06/18/2024 43688-3 3 / / [id number] Treo Stent-Graft System Implanted:Qt y: 1 on 11/30/2022 by Elliott Nicholson MD at [facility] N/A: Aorta [employer] 07/23/2023 28-B2-3 0-080U / / [id number] Terumo Medical Johanny Stent Graft Iliac Leg Extension 13/88i519ta Treo Polyester Nitinol 06-S2-99-120 u - [id number] Implanted:Qt y: 1 on 11/30/2022 by Elliott Nicholson MD at [facility] Right: Iliac [employer]ist [employer] Johanny 10/16/2025 28-L2-1 3-120U / / [id number] Procedures Procedure Name Priority Date/Time Associated Diagnosis Comments CTA ABDOMEN PELVIS W WO CONTRAST Schedule Routine, Read Routine (OP Routine) 02/23/2023 12:33 PM RECEPTIONIST AIRLINE LOUNGE Aftercare following surgery of the circulatory system from Last 3 Months or Most Recently Relevant to Health Maintenance Results * CTA Abdomen Pelvis (02/23/2023 12:33 PM RECEPTIONIST AIRLINE LOUNGE) Anatomical Region Laterality Modality Body N/A Computed Tomogra phy 02/24/2023 10:4 4 AM RECEPTIONIST AIRLINE LOUNGE Narrative 02/24/2023 11:06 AM RECEPTIONIST AIRLINE LOUNGE EXAM DESCRIPTION: CTA ABDOMEN PELVIS REASON FOR [...] Findings Committee. J Am Lyly Radiol. 2017 Oct;14(8):2922-3443. FINDINGS: VASCULATURE: On the initial non contrasted [...] signed by Tera AMBROSIO T: Report ID: [id number] Reading Location: [id number] Procedure Note Tera Norwood MD - 02/24/2023 [...] Findings Committee. J Am Lyly Radiol. 2017 Oct;14(8):8634-9484. FINDINGS: VASCULATURE: On the initial non contrasted [...] signed by Tera AMBROSIO T: Report ID: [id number] Reading Location: [place] [address] Elliott Nicholson MD IMG CT PROCEDURES Final Re sult from Last 3 Months or Most Recently Relevant to Health Maintenance Insurance [facility] Advance Directives For more information, please contact: [phone] * Full Code (Latest Code Status on File) Date Activated Date Inactivated Comments 11/30/2022 1:56 PM 12/01/2022 8:10 PM Care Teams Knife Setter Relationship Specialty Start Date End Date Marvin Coulter DO [facility] [place] [address] PCP - General Family Medicine 10/21/22 Elliott Nicholson MD [address] [place] [address] Surgeon Vascular Surgery 11/11/22
[2024-08-10 12:25] LABS: Basophils Percent Auto 0.5 % (0.2-1.2); Eosinophils Absolute Auto 0.3 K/mm3 (0-0.3); Eosinophils Percent Auto 3.7 % (0-4.4); Hematocrit 46.6 % (42.0-52.0); Hemoglobin 14.7 g/dL (14.0-18.0); Immature Granulocyte Absolute 0.02 K/mm3 (0.00-0.031); Immature Granulocyte Percent A 0.2 % (0-0.5); Lymphocytes Absolute Auto 2.78 K/mm3 (0.9-3.2); Lymphocytes Percent Auto 33.9 % (18.3-44.2); Mean Corpuscular HGB Conc 31.5 g/dl (32-36); Mean Corpuscular Hemoglobin 29.9 pg (26-34); Mean Corpuscular Volume 94.7 fl (80-100); Mean Platelet Volume 9.3 fl (7.4-10.4); Monocytes Absolute Auto 0.8 K/mm3 (0.1-0.6); Neutrophils Absolute Auto 4.2 K/mm3 (1.3-6.7); Neutrophils Percent Auto 51.7 % (45.5-73.1); Platelet Count Result 163 k/mm3 (150-375); Red Blood Count 4.92 M/mm3 (4.6-6.20); Red Cell Distribution Width 13.3 % (11.5-14.5); White Blood Count 8.2 K/mm3 (4.5-10.0)
[2024-08-10 12:41] LABS: Alanine Aminotransferase 21 U/L (6-50); Albumin Level 4.1 g/dL (3.5-5.1); Alkaline Phosphatase 96 U/L (38-126); Anion Gap 8 mmol/L (4-12); Aspartate Amino Transferase 48 U/L (17-59); Bilirubin,Total 0.6 mg/dL (0.2-1.3); Blood Urea Nitrogen 21 mg/dL (9-20); Calcium 8.9 mg/dL (8.4-10.2); Carbon Dioxide 26 mmol/L (22-30); Chloride 107 mmol/L (98-107); Estimated Glomerular Filt Rate 55; Glucose 124 mg/dL (65-110); Potassium 4.9 mmol/L (3.4-5.0); Sodium 141 mmol/L (137-145)
[2024-08-10 18:10] LABS: Hemoglobin A1C 6.2 % (<5.7)
== END 2024-08-10 11:34 | disposition home or self-care (01) ==
LOC: ANHGOSHLAB 11:34
PROVIDERS: PCP Internal Medicine; Visit Provider Internal Medicine
DX: R80.9 Proteinuria, unspecified (principal); R73.9 Hyperglycemia, unspecified; R10.9 Unspecified abdominal pain
CPT/HCPCS: 36415; 80053; 83036; 85025

== ENCOUNTER 2024-08-16 09:39 | Outpatient (CLI) | payer OTHER, SELFPAY ==
--- NOTE | ~2024-08-16 | CT_ITS ---
CT of the Abdomen and Pelvis: Indication: Abdominal pain Technique: 2.5 mm axial scans were obtained through the abdomen and pelvis following intravenous adm inistration of 100 cc of Omnipaque 350. Dose reduction technique was used on this scan by utilizing a utomated exposure control and iterative reconstruction technique. The dose-length product (DLP) was 4 30.62 mGy-cm. COMPARISON: 10/20/2022 Findings: Scans through the lung bases are unremarkable. Small left hepatic lobe cyst present. The spleen, pancreas, gallbladder, adrenals and kidneys are wit hin normal limits. 6.7 cm infrarenal abdominal aortic aneurysm is present with aortic stent graft in place. There is small amount of hyperdense material within the aneurysm sac which could reflect endol eak (axial image 84-85 for example). No lymphadenopathy. No bowel obstruction or bowel wall thickening. There is no evidence to suggest acute appendicitis. Sm all fat-containing umbilical hernia noted. Images through the pelvis were performed. Urinary bladder unremarkable. Prostate gland mildly enlarge d. No ascites. Impression: 6.7 cm infrarenal abdominal aortic aneurysm with aortic stent grafts in place. Questionable endoleak, though some of the hyperdense material within the aneurysm sac is essentially stable as compared to preoperative examination. Consider pre and postcontrast CT angiogram to better confirm or exclude end oleak. Reviewed, dictated and finalized at [facility]. Impression: 6.7 cm infrarenal abdominal aortic aneurysm with aortic stent grafts in place. Questionable endoleak, though some of the hyperdense material within the aneury sm sac is essentially stable as compared to preoperative examination. Consider pre and postcontrast CT angiogram to better confirm or exclude endoleak.
--- OUTSIDE RECORDS SUMMARY | 2024-08-16 09:53 | XMS_ITS | Continuity of Care Document ---
Author Organization [facility] Address [address] [place] [address] Phone Care Team Providers Care Culinary Chef Name Role Phone Reed Jiménez MD Unavailable Unavailable Procedures Procedure Date Office/outpatient Visit, [facility] Advance Directives Directive Yes / No Effective Date File Name No Information Encounters Encounter Description Practice Location Reason(s) For Visit Diagnoses Date Provider Providers Copied on Encounter Office/outpat ient Visit, Est [facility], [address], [place], [place], [id number], [place] tel:[phone] [facility] Professional No Information [address] [facility] [place], [place], [address], [place]. tel:[phone] Referring Provider: Randall Taylor OD, [facility] [address] [place], [address]. tel:[phone] Family History Family Member Type Diagnosis Age At Onset No Information Payers Payer name Insurance type Covered libertarian ID Authoriza tion(s) No Information Social History [...]
--- OUTSIDE RECORDS SUMMARY | 2024-08-16 09:53 | XMS_ITS | Referral Summary ---
Author Organization [facility] at the [facility] Office Center Address [address] [place] [address] Care Team Providers Care Lure Maker Name Role Phone Marvin Coulter DO Primary Care Provider [phone] Elliott Nicholson MD Unavailable [phone] Allergies No known active allergies Medications [...] 11/30/2022 Assessment & Plan (03/08/2024 11:55 AM RENAL TECHNICIAN): Current duplex shows a patent endovascular graft with [place] aneurysmal sac measuring 6.4 x 6.7 cm. Continue aspirin statin therapy and good plaques. Assessment & Plan (03/10/2023 2:17 PM RENAL TECHNICIAN): Status post percutaneous EVAR. CT shows [...] often do you attend chur ch or nondenominational services? Never 11/30/2022 Do you belong to any clubs o r organizations such as methodist groups, unions, fraternal or athletic groups, or [...] place to sleep or slept in a detention (including now)? No 11/30/2022 Personal Safety Answer Date Recorded Have you ever been in or are you currently in a harmful physical or emotional relationship or is someone making you feel afraid or unsafe? Denies 11/30/2022 Sex and Gender Information Value Date Recorded Sex Assigned at Not on file Legal Sex Male 11:39 AM RENAL TECHNICIAN Gender Identity Not on file Sexual Orientation Not on file Last Filed Vital Signs Vital Sign Reading Time Taken Comments Blood Pressure 194/75 03/07/2024 10:33 AM RENAL TECHNICIAN Pulse 64 03/07/2024 10:33 AM RENAL TECHNICIAN Temperature 36.6 C (97.9 F) 12/01/2022 11:14 AM CDT Respiratory Rate 18 09/16/2023 10:54 AM CDT Oxygen Saturation 94% 10/11/2023 1:20 PM CDT Inhaled Oxygen Concentration - - Weight 77.6 kg (171 lb) 03/07/2024 10:33 AM RENAL TECHNICIAN Height 172.7 cm (5' 8) 03/07/2024 10:33 AM RENAL TECHNICIAN Body Mass Index 26 03/07/2024 10:33 AM RENAL TECHNICIAN Plan of Treatment Not on file Medical Devices Implanted Type Area Manifold Builder Device Identifier Shelf Expiration Date Model / Serial / Lot Treo Stent-Graft System Implanted:Qt y: 1 on 11/30/2022 by Elliott Nicholson MD at [facility] Endoprosthesis Left: Iliac [employer] Inc 11/02/2025 28-L2-1 3-140U / / [id number] Treo Abdominal Stent Graft System Implanted:Qt y: 1 on 11/30/2022 by Elliott Nicholson MD at [facility] Graft N/A: Abdominal Aorta Terumo Cardio Vascular [id number] 02/29/2024 28-C2-3 0-040U / / [id number] Description:Aortic Cuff Lomax Vascular Device Clsr Perclose Prostyle Sut-Mediatd Closure-Repa ir Sys [id number] - [id number] Implanted:Qt y: 5 on 11/30/2022 by Elliott Nicholson MD at [facility] Bilateral: Groin Lomax Vascular 06/18/2024 47368-2 3 / / [id number] Treo Stent-Graft System Implanted:Qt y: 1 on 11/30/2022 by Elliott Nicholson MD at [facility] N/A: Aorta [employer] Inc 07/23/2023 28-B2-3 0-080U / / [id number] Terumo Medical Johanny Stent Graft Iliac Leg Extension 13/[id number] Treo Polyester Nitinol 02-Q5-66-120 u - [id number] Implanted:Qt y: 1 on 11/30/2022 by Elliott Nicholson MD at [facility] Right: Iliac Terumo Medical Johanny 10/16/2025 28-L2-1 3-120U / / [id number] Procedures Procedure Name Priority Date/Time Associated Diagnosis Comments CTA ABDOMEN PELVIS W WO CONTRAST Schedule Routine, Read Routine (OP Routine) 02/23/2023 12:33 PM RENAL TECHNICIAN Aftercare following surgery of the circulatory system from Last 3 Months or Most Recently Relevant to Health Maintenance Results * CTA Abdomen Pelvis (02/23/2023 12:33 PM RENAL TECHNICIAN) Anatomical Region Laterality Modality Body N/A Computed Tomogra phy 02/24/2023 10:4 4 AM RENAL TECHNICIAN Narrative 02/24/2023 11:06 AM RENAL TECHNICIAN EXAM DESCRIPTION: CTA ABDOMEN PELVIS REASON [...] Findings Committee. J Am Lyly Radiol. 2017 Oct;14(8):9158-3625. FINDINGS: VASCULATURE: On the initial non contrasted [...] signed by Tera AMBROSIO T: Report ID: [id number] Reading Location: [id number] Procedure Note Tera Norwood MD - 02/24/2023 [...] Findings Committee. J Am Lyly Radiol. 2017 Oct;14(8):2600-9987. FINDINGS: VASCULATURE: On the initial non contrasted [...] signed by Tera AMBROSIO T: Report ID: [id number] Reading Location: [place] [address] Elliott Nicholson MD IM CT PROCEDURES Final Re sult from Last 3 Months or Most Recently Relevant to [place] [address] [facility] [place] [address] [facility] Advance Directives For more information, please contact: [phone] * Full Code (Latest Code Status on File) Date Activated Date Inactivated Comments 11/30/2022 1:56 PM 12/01/2022 8:10 PM Care Teams Lure Maker Relationship Specialty Start Date End Date Marvin Coulter DO [address] [place] [address] PCP - General Family Medicine 10/21/22 Elliott Nicholson MD [address] [place] [address] Surgeon Vascular Surgery 11/11/22
--- OUTSIDE RECORDS SUMMARY | 2024-08-16 09:53 | XMS_ITS | Clinical Summary ---
Author Organization [facility] at the [facility] Office Center Address [address] [place] [address] Care Team Providers Care Resource Program Teacher Name Role Phone Marvin Coulter DO Primary Care Provider [phone] Elliott Nicholson MD Unavailable [phone] Allergies No known active allergies Medications [...] 11/30/2022 Assessment & Plan (03/08/2024 11:55 AM SPINAL SURGEON): Current duplex shows a patent endovascular graft with [place] aneurysmal sac measuring 6.4 x 6.7 cm. Continue aspirin statin therapy and good plaques. Assessment & Plan (03/10/2023 2:17 PM SPINAL SURGEON): Status post percutaneous EVAR. CT shows stent [...] How often do you attend chur or moravian services? Never 11/30/2022 Do you belong to any clubs o r organizations such as scientology groups, unions, fraternal or athletic groups, or [...] on file Legal Sex Male 11:39 AM SPINAL SURGEON Gender Identity Not on file Sexual Orientation Not on file Obstetrics History Last Filed Vital Signs Vital Sign Reading Time Taken Comments Blood Pressure 194/75 03/07/2024 10:33 AM SPINAL SURGEON Pulse 64 03/07/2024 10:33 AM SPINAL SURGEON Temperature 36.6 C (97.9 F) 12/01/2022 11:14 AM CDT Respiratory Rate 18 09/16/2023 10:54 AM CDT Oxygen Saturation 94% 10/11/2023 1:20 PM CDT Inhaled Oxygen Concentration - - Weight 77.6 kg (171 lb) 03/07/2024 10:33 AM SPINAL SURGEON Height 172.7 cm (5' 8) 03/07/2024 10:33 AM SPINAL SURGEON Body Mass Index 26 03/07/2024 10:33 AM SPINAL SURGEON Plan of Treatment Health Maintenance Due Date [...] history exists Medical Devices Implanted Type Area Box Press Operator Device Identifier Shelf Expiration Date Model / Serial / Lot Treo Stent-Graft System Implanted:Qt y: 1 on 11/30/2022 by Elliott Nicholson MD at [facility] Endoprosthesis Left: Iliac [employer] 11/02/2025 28-L2-1 3-140U / / [id number] Treo Abdominal Stent Graft System Implanted:Qt y: 1 on 11/30/2022 by Elliott Nicholson MD at [facility] Graft N/A: Abdominal Aorta Terumo Cardio Vascular [id number] 02/29/2024 28-C2-3 0-040U / / [id number] Description:Aortic Cuff Lomax Vascular Device Clsr Perclose Prostyle Sut-Mediatd Closure-Repa ir Sys 47522-31 - [id number] Implanted:Qt y: 5 on 11/30/2022 by Elliott Nicholson MD at [facility] Bilateral: Groin Lomax Vascular 06/18/2024 41596-5 3 / / [id number] Treo Stent-Graft System Implanted:Qt y: 1 on 11/30/2022 by Elliott Nicholson MD at [facility] N/A: Aorta [employer] Inc 07/23/2023 28-B2-3 0-080U / / [id number] Terumo Medical Johanny Stent Graft Iliac Leg Extension 13/92j012ta Treo Polyester Nitinol 90-O7-30-120 u - [id number] Implanted:Qt y: 1 on 11/30/2022 by Elliott Nicholson MD at [facility] Right: Iliac [employer] Johanny 10/16/2025 28-L2-1 3-120U / / [id number] Procedures Procedure Name Priority Date/Time Associated Diagnosis Comments CTA ABDOMEN PELVIS W WO CONTRAST Schedule Routine, Read Routine (OP Routine) 02/23/2023 12:33 PM SPINAL SURGEON Aftercare following surgery of the circulatory system from Last 3 Months or Most Recently Relevant to Health Maintenance Results * CTA Abdomen Pelvis (02/23/2023 12:33 PM SPINAL SURGEON) Anatomical Region Laterality Modality Body N/A Computed Tomogra phy 02/24/2023 10:4 4 AM SPINAL SURGEON Narrative 02/24/2023 11:06 AM SPINAL SURGEON EXAM DESCRIPTION: CTA ABDOMEN PELVIS REASON FOR [...] Findings Committee. J Am Lyly Radiol. 2017 Oct;14(8):6732-4094. FINDINGS: VASCULATURE: On the initial non contrasted [...] signed by Tera AMBROSIO T: Report ID: [id number] Reading Location: [id number] Procedure Note Tera Norwood MD - 02/24/2023 [...] Findings Committee. J Am Lyly Radiol. 2017 Oct;14(8):3916-9278. FINDINGS: VASCULATURE: On the initial non contrasted [...] signed by Tera AMBROSIO T: Report ID: [id number] Reading Location: [place] [address] Elliott Nicholson MD IMG CT PROCEDURES Final Re sult from Last 3 Months or Most Recently Relevant to Health Maintenance Insurance [facility] Advance Directives For more information, please contact: [phone] * Full Code (Latest Code Status on File) Date Activated Date Inactivated Comments 11/30/2022 1:56 PM 12/01/2022 8:10 PM Care Teams Resource Program Teacher Relationship Specialty Start Date End Date Marvin Coulter DO [facility] [place] [address] PCP - General Family Medicine 10/21/22 Elliott Nicholson MD [address] [place] [address] Surgeon Vascular Surgery 11/11/22
== END 2024-08-16 09:40 | disposition home or self-care (01) ==
PROVIDERS: PCP Internal Medicine; Visit Provider Internal Medicine
DX: R10.9 Unspecified abdominal pain (principal)
CPT/HCPCS: 74177; Q9967

== ENCOUNTER 2024-08-31 13:16 | Outpatient (CLI) | payer OTHER, SELFPAY ==
--- NOTE | ~2024-08-31 | CT_ITS ---
EXAMINATION: CTA abdomen pelvis DATE: 08/31/2024 13:53 INDICATION: Abdominal aortic aneurysm. Assess for endoleak. TECHNIQUE: Computed tomographic angiography (CTA) of the abdomen and pelvis was performed without and with 100 mL Omnipaque-350 intravenous contrast as well as repeat delayed postcontrast images of the region of the aortic endoluminal stent graft. Additional 3D reconstructions utilizing rotating maximu m intensity projection (MIP) were performed. Automated exposure control and iterative reconstruction technique were employed. The dose-length product was 1142.75 mGy-cm. COMPARISON: 08/16/2024 FINDINGS: Stable appearance of bibasilar atelectasis/scarring. Heart size is normal. Atherosclerotic coronary a rtery calcifications and aortic valve calcification. No pericardial or pleural effusion. Small slidin g-type hiatal hernia. 1.8 cm cyst in the left hepatic lobe. Gallbladder, spleen, pancreas, bilateral adrenal glands are normal. There is likely age-related mild bilateral renal atrophy. There are a coup le left renal cysts the larger measuring 1.5 cm. There are small calcifications at the bilateral theron l hipolito which appear predominantly atherosclerotic associated with enhancing arteries with additional 2 mm likely stone in a calyx at the upper pole of the right kidney. There is prominent diverticulosis along the descending and sigmoid colon without adjacent inflammatory change to suggest diverticuliti s. Small bowel and appendix are normal. Bladder is normal. Prostatomegaly. Moderate-sized bilateral f at-containing inguinal hernias. No free intraperitoneal gas or fluid. No pathologically enlarged abdo eyad or pelvic lymphadenopathy. Endoluminal stent graft beginning between the levels of the take off of the superior mesenteric artery and bilateral renal arteries and extending to the dorsal aspect of the mid right and distal left iliac arteries. This spans a fusiform aneurysm of the infrarenal aorta which measures up to 6.5 x 6.1 cm measured orthogonal to the axis of flow on coronal and sagittal im ages respectively. This is decreased from corresponding measurements of 7.1 x 7.1 cm on study dated prior to endoluminal stenting. High attenuation calcification within the aneurysm sac periphe ral to the stent which appears unchanged when comparing the precontrast and both the post contrast im aging. No evident endoleak. Severe lumbar spondylosis. IMPRESSION: 1. Aorta biiliac endoluminal stent graft spanning a now 6.5 x 6.1 cm fusiform infrarenal aortic aneur ysm decreased from 7.1 x 7.1 cm prior to the stenting. No evident endoleak. 2. 2 mm right renal stone. 3. Diverticulosis. 4. Prostatomegaly. 5. Moderate-sized bilateral fat-containing inguinal hernias. Reviewed, dictated and finalized at location A. IMPRESSION: 1. Aorta biiliac endoluminal stent graft spanning a now 6.5 x 6.1 cm fusiform i nfrarenal aortic aneurysm decreased from 7.1 x 7.1 cm prior to the stenting. No evident endoleak. 2. 2 mm right renal stone. 3. Diverticulosis. 4. Prostatomegaly. 5. Moderate-sized bilateral fat-containing inguinal hernias.
--- OUTSIDE RECORDS SUMMARY | 2024-08-31 13:20 | XMS_ITS | Continuity of Care Document ---
Author Organization [facility] Address [address] [place] [address] Phone Care Team Providers Care Pizza Driver Name Role Phone Reed Jiménez MD Unavailable Unavailable Procedures Procedure Date Office/outpatient Visit, [facility] Advance Directives Directive Yes / No Effective Date File Name No Information Encounters Encounter Description Practice Location Reason(s) For Visit Diagnoses Date Provider Providers Copied on Encounter Office/outpat ient Visit, [facility], [address], [place], [place], [id number], [place] tel:[phone] [facility] Professional No Information [address], [place], [place], [id number], [place]. tel:[phone] Referring Provider: Randall Taylor OD, [employer] [address] [place], [address]. tel:[phone] Family History Family Member Type Diagnosis Age [...]
--- OUTSIDE RECORDS SUMMARY | 2024-08-31 13:20 | XMS_ITS | Clinical Summary ---
Author Organization [facility] at the [facility] Office Center Address [address] [place] [address] Care Team Providers Care Costumed Character Entertainer Name Role Phone Marvin Coulter DO Primary Care Provider [phone] Elliott Nicholson MD Unavailable [phone] Allergies No known active allergies Medications [...] 11/30/2022 Assessment & Plan (03/08/2024 11:55 AM MARKETING SALES REPRESENTATIVE): Current duplex shows a patent endovascular graft with [place] aneurysmal sac measuring 6.4 x 6.7 cm. Continue aspirin statin therapy and good plaques. Assessment & Plan (03/10/2023 2:17 PM MARKETING SALES REPRESENTATIVE): Status post percutaneous EVAR. CT shows stent [...] Continue Lipitor 20 mg daily. Arthritis 10/25/2022 Encounters Date Type Department Care Team Description 08/23/2024 Telephone [facility] Medical Group Vascular and Vein Surgery [address] [place] [address] Subha Gunderson, RN 08/17/2024 Orders Only [facility] Medical [facility] Vascular and Vein Surgery [address] [place] [address] ProviderAndrea MD 08/17/2024 Telephone [facility] Medical [facility] Vascular and Vein Surgery [address] [place] [address] Subha Gunderson, RN 08/16/2024 10:05 AM CDT - 08/16/2024 11:59 PM CDT Hospital Encounter [facility] [employer] [address] [facility] [place] [address] Discharge Disposition: Discharge to home or self care from Last 3 Months Immunizations Immunization Administration Dates Next Due Pneumococcal [...] often do you attend chur ch or voodoo services? Never 11/30/2022 Do you belong to any clubs o r organizations such as holiness groups, unions, fraternal or athletic groups, or [...] place to sleep or slept in a nursing home (including now)? No 11/30/2022 Personal Safety Answer Date Recorded Have you ever been in or are you currently in a harmful physical or emotional relationship or is someone making you feel afraid or unsafe? Denies 11/30/2022 Sex and Gender Information Value Date Recorded Sex Assigned at Not on file Legal Sex Male 11:39 AM MARKETING SALES REPRESENTATIVE Gender Identity Not on file Sexual Orientation Not on file Obstetrics History Last Filed Vital Signs Vital Sign Reading Time Taken Comments Blood Pressure 194/75 03/07/2024 10:33 AM MARKETING SALES REPRESENTATIVE Pulse 64 03/07/2024 10:33 AM MARKETING SALES REPRESENTATIVE Temperature 36.6 C (97.9 F) 12/01/2022 11:14 AM CDT Respiratory Rate 18 09/16/2023 10:54 AM CDT Oxygen Saturation 94% 10/11/2023 1:20 PM CDT Inhaled Oxygen Concentration - - Weight 77.6 kg (171 lb) 03/07/2024 10:33 AM MARKETING SALES REPRESENTATIVE Height 172.7 cm (5' 8) 03/07/2024 10:33 AM MARKETING SALES REPRESENTATIVE Body Mass Index 26 03/07/2024 10:33 AM MARKETING SALES REPRESENTATIVE Plan of Treatment Health Maintenance Due Date [...] Abdominal Aortic Aneurysm (A AA) Screen Completed 08/17/2024, 03/07/2024, 03/07/2024, Additional history exists Medical Devices Implanted Type Area Regular Senior Care Provider Device Identifier Shelf Expiration Date Model / Serial / Lot Treo Stent-Graft System Implanted:Qt y: 1 on 11/30/2022 by Elliott Nicholson MD at [facility] Endoprosthesis Left: Iliac [employer] 11/02/2025 28-L2-1 3-140U / / [id number] Treo Abdominal Stent Graft System Implanted:Qt y: 1 on 11/30/2022 by Elliott Nicholson MD at [facility] Graft N/A: Abdominal Aorta Terumo Cardio Vascular [id number] 02/29/2024 28-C2-3 0-040U / / [id number] Description:Aortic Cuff Lomax Vascular Device Clsr Perclose Prostyle Sut-Mediatd Closure-Repa ir Sys 15425-69 - [id number] Implanted:Qt y: 5 on 11/30/2022 by Elliott Nicholson MD at [facility] Bilateral: Groin Lomax Vascular 06/18/2024 83800-5 3 / / [id number] Treo Stent-Graft System Implanted:Qt y: 1 on 11/30/2022 by Elliott Nicholson MD at [facility] N/A: Aorta [employer] 07/23/2023 28-B2-3 0-080U / / [id number] Terumo Medical Johanny Stent Graft Iliac Leg Extension 13/49h868rj Treo Polyester Nitinol 73-E1-72-120 u - [id number] Implanted:Qt y: 1 on 11/30/2022 by Elliott Nicholson MD at [facility] Right: Iliac Ter[employer]o Medical Johanny 10/16/2025 28-L2-1 3-120U / / [id number] Procedures Procedure Name Priority Date/Time Associated Diagnosis Comments CT ABDOMEN PELVIS W WO CONTRAST Schedule Routine, Read Routine (OP Routine) 08/17/2024 10:[address] BODY OUTSIDE REFERENCE Routine 08/16/2024 10:05 AM CDT from Last 3 Months Results * CT Abdomen Pelvis W WO Contrast (08/17/2024 10:03 AM CDT) Anatomical Region Laterality Modality Body N/A Computed Tomogra phy us Historical Provider IMG CT PROCEDURES Final R esult * CT Body Outside Reference (08/16/2024 10:05 AM CDT) Narrative MIKE_EZE_MHE - 08/23/2024 12:08 PM CDT This order has been auto-finalized and does not contain a result. us Provider Transcribed Order IMG CT PROCEDURES Fin al Result RAD_SAY_JARVISB_MHE from Last 3 [place] [address] [facility] [address] [facility] Advance Directives For more information, please contact: [phone] * Full Code (Latest Code Status on File) Date Activated Date Inactivated Comments 11/30/2022 1:56 PM 12/01/2022 8:10 PM Care Teams Costumed Character Entertainer Relationship Specialty Start Date End Date Marvin Coulter DO [address] [place] [address] PCP - General Family Medicine 10/21/22 [place] [address] [place] [address] [address] [place] [address] Surgeon Vascular Surgery 11/11/22
--- OUTSIDE RECORDS SUMMARY | 2024-08-31 13:20 | XMS_ITS | Referral Summary ---
Author Organization [facility] at the [facility] Center Address [address] [place] [address] Care Team Providers Care Licensed Physical Therapist Assistant Name Role Phone Marvin Coulter DO Primary Care Provider [phone] Elliott Nicholson MD Unavailable [phone] Encounters Date Type Department Care Team Description 08/23/[address] [facility] Medical [facility] Vascular and Vein Surgery [facility] [address] [address] Subha Gunderson, RN 08/17/2024 Orders Only [facility] Vascular and Vein Surgery [facility] [address] [address] Andrea Shoemaker MD 08/17/2024 Telephone [facility] Vascular and Vein Surgery [address] [place] [address] Subha Gunderson, RN 08/16/2024 10:05 AM CDT - 08/16/2024 11:59 PM CDT Hospital Encounter [facility] [employer] [address] [place] [address] Discharge Disposition: Discharge to home or self care from Last 3 Months Allergies No known active allergies Medications atorvastatin [...] 11/30/2022 Assessment & Plan (03/08/2024 11:55 AM TELEPHONE DIAPHRAGM ASSEMBLER): Current duplex shows a patent endovascular graft with [place] aneurysmal sac measuring 6.4 x 6.7 cm. Continue aspirin statin therapy and good plaques. Assessment & Plan (03/10/2023 2:17 PM TELEPHONE DIAPHRAGM ASSEMBLER): Status post percutaneous EVAR. CT shows stent [...] How often do you attend chur or rastafari services? Never 11/30/2022 Do you belong to any clubs o r organizations such as orthodoxy groups, unions, fraternal or athletic groups, or [...] on file Legal Sex Male 11:39 AM TELEPHONE DIAPHRAGM ASSEMBLER Gender Identity Not on file Sexual Orientation Not on file Last Filed Vital Signs Vital Sign Reading Time Taken Comments Blood Pressure 194/75 03/07/2024 10:33 AM TELEPHONE DIAPHRAGM ASSEMBLER Pulse 64 03/07/2024 10:33 AM TELEPHONE DIAPHRAGM ASSEMBLER Temperature 36.6 C (97.9 F) 12/01/2022 11:14 AM CDT Respiratory Rate 18 09/16/2023 10:54 AM CDT Oxygen Saturation 94% 10/11/2023 1:20 PM CDT Inhaled Oxygen Concentration - - Weight 77.6 kg (171 lb) 03/07/2024 10:33 AM TELEPHONE DIAPHRAGM ASSEMBLER Height 172.7 cm (5' 8) 03/07/2024 10:33 AM TELEPHONE DIAPHRAGM ASSEMBLER Body Mass Index 26 03/07/2024 10:33 AM TELEPHONE DIAPHRAGM ASSEMBLER Plan of Treatment Not on file Medical Devices Implanted Type Area Equal Employment Opportunity Officer Device Identifier Shelf Expiration Date Model / Serial / Lot Treo Stent-Graft System Implanted:Qt y: 1 on 11/30/2022 by Elliott Nicholson MD at [facility] Endoprosthesis Left: Iliac [employer] 11/02/2025 28-L2-1 3-140U / / [id number] Treo Abdominal Stent Graft System Implanted:Qt y: 1 on 11/30/2022 by Elliott Nicholson MD at [facility] Graft N/A: Abdominal Aorta [employer]o Card[employer] Vascular [id number] 02/29/2024 28-C2-3 0-040U / / [id number] Description:Aortic Cuff Lomax Vascular Device Clsr Perclose Prostyle Sut-Mediatd Closure-Repa ir Sys [id number] - [id number] Implanted:Qt y: 5 on 11/30/2022 by Elliott Nicholson MD at [facility] Bilateral: Groin Lomax Vascular 06/18/2024 99904-5 3 / / [id number] Treo Stent-Graft System Implanted:Qt y: 1 on 11/30/2022 by Elliott Nicholson MD at [facility] N/A: Aorta [employer] 07/23/2023 28-B2-3 0-080U / / [id number] [employer] Johanny Stent Graft Iliac Leg Extension 13/21l003uf Treo Polyester Nitinol 51-N8-30-120 u - [id number] Implanted:Qt y: 1 on 11/30/2022 by Elliott Nicholson MD at [facility] Right: Iliac [employer] Johanny 10/16/2025 28-L2-1 3-120U / / [id number] Procedures Procedure Name Priority Date/Time Associated Diagnosis Comments CT ABDOMEN PELVIS W WO CONTRAST Schedule Routine, Read Routine (OP Routine) 08/17/2024 10:[address] BODY OUTSIDE REFERENCE Routine 08/16/2024 10:05 AM CDT from Last 3 Months Results * CT Abdomen Pelvis W WO Contrast (08/17/2024 10:03 AM CDT) Anatomical Region Laterality Modality Body N/A Computed Tomogra phy Historical Provider MD IMG CT PROCEDURES Final R esult * CT Body Outside Reference (08/16/2024 10:05 AM CDT) Narrative MIKE_MHB_MHE - 08/23/2024 12:08 PM CDT This order has been auto-finalized and does not contain a result. us Provider Transcribed Order IMG CT PROCEDURES Fin al Result RAD_MADISYNIO_MHB_MHE from Last [address] [place] [address] [facility] [place] [address] Advance Directives For more information, please contact: [phone] * Full Code (Latest Code Status on File) Date Activated Date Inactivated Comments 11/30/2022 1:56 PM 12/01/2022 8:10 PM Care Teams Licensed Physical Therapist Assistant Relationship Specialty Start Date End Date Marvin Coulter DO [address] [facility] [address] [address] [place] [address] PCP - General Family Medicine 10/21/22 Elliott Nicholson MD [address] [place] [address] Surgeon Vascular Surgery 11/11/22
== END 2024-08-31 13:17 | disposition home or self-care (01) ==
PROVIDERS: PCP Internal Medicine; Visit Provider Internal Medicine
DX: I71.40 Abdominal aortic aneurysm, without rupture, unspecified (principal); K57.30 Diverticulosis of large intestine without perforation or abscess without bleeding; N40.0 Benign prostatic hyperplasia without lower urinary tract symptoms; K40.20 Bilateral inguinal hernia, without obstruction or gangrene, not specified as recurrent; N20.0 Calculus of kidney
CPT/HCPCS: 74174; Q9967

== ENCOUNTER 2024-09-11 09:23 | Outpatient (CLI) | payer OTHER, SELFPAY ==
[2024-09-11 13:32] LABS: Anion Gap 9 mmol/L (4-12); Blood Urea Nitrogen 18 mg/dL (9-20); Carbon Dioxide 25 mmol/L (22-30); Chloride 107 mmol/L (98-107); Estimated Glomerular Filt Rate 54; Glucose 129 mg/dL (65-110); Potassium 4.5 mmol/L (3.4-5.0); Sodium 141 mmol/L (137-145)
[2024-09-11 14:34] LABS: Creatinine Urine 209.8 mg/dL
[2024-09-11 14:52] LABS: MALB Creatinine Ratio 150.8 mg/g (0-30); Microalbumin Urine Random 316.4 mg/L (0-16.7)
== END 2024-09-11 09:24 | disposition home or self-care (01) ==
LOC: ANHGOSHLAB 09:24
PROVIDERS: PCP Internal Medicine; Visit Provider Internal Medicine
DX: I12.9 Hypertensive chronic kidney disease with stage 1 through stage 4 chronic kidney disease, or unspecified chronic kidney disease (principal); N18.31 Chronic kidney disease, stage 3a; R80.9 Proteinuria, unspecified
CPT/HCPCS: 36415; 80048; 82043

== ENCOUNTER 2025-03-08 11:34 | Outpatient (CLI) | payer OTHER, SELFPAY ==
--- OUTSIDE RECORDS SUMMARY | 2025-03-07 12:27 | XMS_ITS | Encounter Summary ---
Author Organization [facility] Healthcare Address [address] [place] [address] Care Team Providers Care Environmental Control Administrator Name Role Phone Marvin Coulter Primary Care Provider [phone] Elliott Nicholson MD Unavailable [phone] Reason for Referral * Diagnostic Imaging (Routine) - Closed Specialty Diagnoses / Procedures Referred By Sofia daniel Referred To Contact Diagnoses Aneurysm of infrarenal abdominal aorta, unspecified whether ruptured Procedures US Duplex Scan of Aorta; Inferior Vena Cava, Iliac, Complete Elliott Nicholson MD [facility] [facility] [address] [address] Phone: tel: fax: [facility] Medical Office Building [address] [place] [phone] Referral ID Status Reason Start Date Expiration Date Visits Re quested Visits Authorized [id number] Closed 03/07/2024 04/06/2025 1 1 RIGHT MANAGER Reason for Visit * Diagnostic Imaging (Routine) - Closed Specialty Diagnoses / Procedures Referred By Sofia daniel Referred To Contact Diagnoses Aneurysm of infrarenal abdominal aorta, unspecified whether ruptured Procedures US Duplex Scan of Aorta; Inferior Vena Cava, Iliac, Complete Elliott Nicholson MD [address] [facility] [address] [facility] [place] [address] Phone: tel: fax: [facility] Medical Office Building [address] [place] [address] Referral ID Status Reason Start Date Expiration Date Visits Re quested Visits Authorized [id number] Closed 03/07/2024 04/06/2025 1 1 Encounter Details Date Type Department Care Team (Latest Contact Info) Description 03/07/2025 12:27 PM COPYRIGHT MANAGER - 03/07/2025 11:59 PM COPYRIGHT MANAGER Hospital Encounter [facility] [address] [place] [address] [address] [place] [address] Aneurysm of infrarenal abdominal aorta, unspecified whether ruptured Discharge Disposition: Discharge to home or self care Social History Tobacco Use Types Packs/Day Years Used Date Smoking Tobacco: Former Cigarettes 0.3 55.2 1 968 - 05/2022 Social Connection and Isolation Panel Answer Date Recorded In a typical week, how many times do you talk on the phone with family, friends, or neighbors? More than three times a week 11/30/2022 How often do you get togethe r with friends or relatives? More than three times a week 11/30/2022 How often do you attend chur ch or pentecostalism services? Never 11/30/2022 Do you belong to any clubs o r organizations such as gnosticist groups, unions, fraternal or athletic groups, or [...] place to sleep or slept in a custodial (including now)? No 11/30/2022 Personal Safety Answer Date Recorded Have you ever been in or are you currently in a harmful physical or emotional relationship or is someone making you feel afraid or unsafe? Denies 11/30/2022 Sex and Gender Information Value Date Recorded Sex Assigned at Not on file Legal Sex Male 11:39 AM COPYRIGHT MANAGER Gender Identity Not on file Sexual Orientation Not on file documented as of this encounter Medications at Time of Discharge acetaminophen (TYLENOL) 500 mg tablet Take 1 tablet (500 mg total) by mouth nightly atorvastatin (LIPITOR) 20 mg tablet Take 1 tablet (20 mg total) by mouth nightly 09/20/2022 cetirizine (ZyrTEC) 10 mg tablet Take 1 tablet (10 mg total) by mouth daily losartan (COZAAR) 25 mg tablet Take 1 tablet (25 mg total) by mouth daily propranolol LA (INDERAL LA) 60 mg 24 hr capsule Take 1 capsule (60 mg total) by mouth daily 11/19/2022 tamsulosin (FLOMAX) 0.4 mg extended release capsule Take 1 capsule (0.4 mg total) by mouth daily 09/20/2022 documented as of this encounter Discharge Disposition Disposition Code Departure Means Destination Discharge to home or self care documented in this encounter Plan of Treatment Pending Results Name Type Priority Associated Diagnoses Date /Time US Duplex Scan of Aorta; Inferior Vena Cava, Iliac, Complete Imaging Schedule Routine, Read Routine (OP Routine) Aneurysm of infrarenal abdominal aorta, unspecified whether ruptured 03/07/2025 1:11 PM COPYRIGHT MANAGER Scheduled Orders Name Type Priority Associated Diagnoses Orde r Schedule US Duplex Scan of Aorta; Inferior Vena Cava, Iliac, Complete Imaging Schedule Routine, Read Routine (OP Routine) Aneurysm of infrarenal abdominal aorta, unspecified whether ruptured Once for 1 Occurrences starting 03/07/2025 until 03/07/2025 documented as of this encounter Visit Diagnoses Diagnosis Aneurysm of infrarenal abdominal aorta, unspecified whether ruptured documented in this encounter Care Teams Environmental Control Administrator Relationship Specialty Start Date End Date Marvin Coulter DO [address] [facility] [address] [address] [place] [address] PCP - General Family Medicine 10/21/22 Elliott Nicholson MD [address] [facility] [address] [place] [address] Surgeon Vascular Surgery 11/11/22 documented as of this encounter
--- OUTSIDE RECORDS SUMMARY | 2025-03-07 13:30 | XMS_ITS | Encounter Summary ---
Author Organization [facility] Address [address] [place] [address] Care Team Providers Care Structural Steel Erection Supervisor Name Role Phone Marvin Coulter DO Primary Care Provider [phone] Elliott Nicholson MD Unavailable [phone] Reason for Referral * Diagnostic Imaging (Routine) - Authorized Specialty Diagnoses / Procedures Referred By Contac t Referred To Contact Diagnoses Aftercare following surgery of the circulatory system Procedures US Duplex Scan of Aorta; Inferior Vena Cava, Iliac, Complete Jenni David NP [address] [place] [address] DR [address] [place] [address] Phone: tel: fax: [facility] Medical Office Building 2 [facility] [place] [address] Referral ID Status Reason Start Date Expiration Date V isits Requested Visits Authorized [id number] Authorized 03/08/2025 04/07/2026 1 1 CTIONS COUNSELOR Reason for Visit * Reason Comments Follow-up 1yr EVAR 11/30/22S Encounter Details Date Type Department Care Team (Late st Contact Info) Description 03/07/2025 1:30 PM ADDICTIONS COUNSELOR Office Visit [facility] Vascular and Vein Surgery [address] [facility] [address] [place] [phone] Jenni David NP [address] [place] [address] [address] [place] [id number] Infrarenal abdominal aortic aneurysm (AAA) without rupture (Primary Dx); Primary hypertension; Mixed hyperlipidemia; Aftercare following surgery of the circulatory system Social History Tobacco Use Types Packs/Day Years [...] often do you attend chur ch or quaker services? Never 11/30/2022 Do you belong to any clubs o r organizations such as temple groups, unions, fraternal or athletic groups, or [...] place to sleep or slept in a fdc (including now)? No 11/30/2022 Personal Safety Answer Date Recorded Have you ever been in or are you currently in a harmful physical or emotional relationship or is someone making you feel afraid or unsafe? Denies 11/30/2022 Sex and Gender Information Value Date Recorded Sex Assigned at Not on file Legal Sex Male 11:39 AM ADDICTIONS COUNSELOR Gender Identity Not on file Sexual Orientation Not on file documented as of this encounter Last Filed Vital Signs Vital Sign Reading Time Taken Comments Blood Pressure 114/62 03/07/2025 1:24 PM ADDICTIONS COUNSELOR Pulse 74 03/07/2025 1:24 PM ADDICTIONS COUNSELOR Temperature - - Respiratory Rate - - Oxygen Saturation - - Inhaled Oxygen Concentration - - Weight 77.6 kg (171 lb) 03/07/2025 1:24 PM ADDICTIONS COUNSELOR Height 172.7 cm (5' 8) 03/07/2025 1:24 PM ADDICTIONS COUNSELOR Body Mass Index 26 03/07/2025 1:24 PM ADDICTIONS COUNSELOR documented in this encounter Progress Notes * Jenni David, TREATING AND PUMPING SUPERVISOR - 03/07/2025 1:30 PM CST Images from the original note were not included. [facility] Patient ID: Antoine Vaca is a 79 y.o. male Visit Date: 03/07/2025 Chief Complaint Chief Complaint Patient presents with Follow-up 1yr EVAR 11/30/22 SDS HPI Antoine Vaca is a 79 y.o. male w/ a history of hypertension, hyperlipidemia, AAA status post EVAR 2023. Denies any abdominal flank or back pain or claudication symptoms. Patient is continues to do well denies any current issues or concerns today. Antiplatelets/Anticoagulants (and reason): - aspirin Previous vascular surgery interventions, including date (surgery, angio,etc): -11/30/2022: EVAR Past Medical History: Diagnosis Date Allergic rhinitis Arthritis Delayed emergence from general anesthesia HTN (hypertension) Hyperlipidemia Past Surgical History: Procedure Laterality Date ABDOMINAL AORTIC ANEURYSM REPAIR 08/19/2022 CATARACT EXTRACTION Bilateral 2021 and Dec COLONOSCOPY N/A 2021 ENDOSCOPIC AORTIC REPAIR 11/30/2022 PEVAR w/ TREO stent graft HERNIA REPAIR AT 11 YEARS OLD TONSILLECTOMY Family History Problem Relation Age of Onset Hypertension Mother Social History Tobacco Use Smoking status: Former Current packs/day: 0.00 Average packs/day: 0.3 packs/day for 55.2 years (13.8 ttl pk-yrs) Types: Cigarettes Start date: 1965 Quit date: 05/2022 Years since quittin.8 Smokeless tobacco: Not on file Substance and Sexual Activity Drug use: Never Sexual activity: Defer Alcohol Use: Not At Risk (11/30/2022) AUDIT-C Frequency of Alcohol Consumption: Monthly or less Average Number of Drinks: 1 or 2 Frequency of Binge Drinking: Never ROS Constitutional: No change in appetite. No recent weight loss. No fevers chills or sweats. HEENT: No trouble swallowing. No tinnitus. Eyes: No visual disturbances Respiratory: No shortness of breath. No cough or sputum production. No wheezing. Cardiovascular: No chest pain. No palpitations. Gastrointestinal: No abdominal pain. No nausea vomiting or diarrhea. Genitourinary: No dysuria. No hematuria. Extremities: No claudication. No rest pain. No lower extremity ulcerations or infections. No significant edema. Musculoskeletal: No joint pains. No back pain. Neurologic: No dizziness. No syncope. No weakness. Skin: No rashes. No discoloration. Hematologic: no bleeding Psychiatric: no anxiety, no behavioral changes, no mood swings PE Constitutional: Alert and oriented HEENT: Head atraumatic and normocephalic Neck is supple No carotid bruits Extraocular movements full, sclerae anicteric Chest: Effort normal. Breath sounds normal. Cardiovascular: S1 and S2 are normal. No murmurs rubs or gallops appreciated. Abdominal: Soft, nontender, no masses. Extremities/Vascular: Palpable femoral, popliteal, dorsalis pedis and posterior tibial pulses bilaterally. No significant edema. No ulcerations. Musculoskeletal: Normal range of motion. Neurologic: Cranial nerves 2-12 intact. Strength and sensation intact bilaterally. Skin: Warm and dry. No rashes. No discoloration. Psychiatric: Normal mood and affect. Behavior normal. Judgment normal. IMAGING STUDIES Aortoiliac duplex measuring [place] sac at 6.5 cm no evidence of endoleak. Diagnoses and all orders for this visit: Infrarenal abdominal aortic aneurysm (AAA) without rupture (Primary) Assessment & Plan: Status post EVAR. [place] aneurysmal sac measuring 6.5 cm stable compared to prior. No evidence of endoleak. Continue good blood pressure control aspirin statin therapy and follow up in 1 year for annual surveillance with aortic duplex. Primary hypertension Assessment & Plan: Chronic and stable. Continue losartan Mixed hyperlipidemia Assessment & Plan: Stable and controlled. Continue Lipitor Jenni aDvid NP This note was generated in part or in whole with voice recognition software. Voice recognition is usually quite accurate but there are adobe block maker errors that can and often occur. All attempts weremade to correct these errors. I apologize for any typographical errors that were not detected and corrected. Cosigned by Elliott Nicholson MD at 03/08/2025 9:22 AM ADDICTIONS COUNSELOR CTIONS COUNSELOR CTIONS COUNSELOR documented in this encounter Miscellaneous Notes * Assessment & Plan Note - Jenni David NP - 03/07/2025 3:07 PM CSTAssociated Problem(s): Primary hypertension Chronic and stable. Continue losartan CTIONS COUNSELOR * Assessment & Plan Note - Jenni David NP - 03/07/2025 3:06 PM CSTAssociated Problem(s): Mixed hyperlipidemia Stable and controlled. Continue Lipitor CTIONS COUNSELOR * Assessment & Plan Note - Jenni David NP - 03/07/2025 3:06 PM CSTAssociated Problem(s): AAA (abdominal aortic aneurysm) without rupture Status post EVAR. [place] aneurysmal sac measuring 6.5 cm stable compared to prior. No evidence of endoleak. Continue good blood pressure control aspirin statin therapy and follow up in 1 year for annual surveillance with aortic duplex. CTIONS COUNSELOR * Addendum Note - Vanesa Laureano MA - 03/07/2025 1:30 PM CSTAddended by: VANESA LAUREANO on: 03/08/2025 09:17 AM Modules accepted: Orders CTIONS COUNSELOR documented in this encounter Plan of Treatment Scheduled Orders Name Type Priority Associated Diagnoses Orde r Schedule US Duplex Scan of Aorta; Inferior Vena Cava, Iliac, Complete Imaging Routine Aftercare following surgery of the circulatory system Expected: 03/08/2026, Expires: 09/06/2026 documented as of this encounter Visit Diagnoses Diagnosis Infrarenal abdominal aortic aneurysm (AAA) without rupture- Primary Primary hypertension Unspecified essential hypertension Mixed hyperlipidemia Aftercare following surgery of the circulatory system Aftercare following surgery of the circulatory system, NEC documented in this encounter Historical Medications * This list may reflect changes made after this encounter. losartan (COZAAR) 25 mg tablet Take 1 tablet (25 mg total) by mouth daily added in this encounter Care Teams Structural Steel Erection Supervisor Relationship Specialty Start Date End Date Marvin Coulter DO [address] [facility] [address] [place] [address] PCP - General Family Medicine 10/21/22 Elliott Nicholson MD [address] [facility] [address] [place] [address] Surgeon Vascular Surgery 11/11/22 documented as of this encounter
--- OUTSIDE RECORDS SUMMARY | 2025-03-08 11:56 | XMS_ITS | Clinical Summary ---
Author Organization [facility] Office Center Address [address] [place] [address] Care Team Providers Care Senior Payroll Manager Name Role Phone Marvin Coulter DO Primary Care Provider [phone] Elliott Nicholson MD Unavailable [phone] Allergies No known active allergies Medications [...] by mouth daily 90 tablet 1 09/25/2023 Active losartan (COZAAR) 25 mg tablet Take 1 tablet (25 mg total) by mouth daily Active Active Problems Problem Noted Date Diagnosed Date Abnormal EKG 09/16/2023 AAA (abdominal aortic aneurysm) without rupture 11/30/2022 Assessment & Plan (03/07/2025 3:06 PM OYSTER GROWER): Status post EVAR. [place] aneurysmal sac measuring 6.5 cm stable compared to prior. No evidence of endoleak. Continue good blood pressure control aspirin statin therapy and follow up in 1 year for annual surveillance with aortic duplex. Assessment & Plan (03/08/2024 11:55 AM OYSTER GROWER): Current duplex shows a patent endovascular graft with yurok aneurysmal sac measuring 6.4 x 6.7 cm. Continue aspirin statin therapy and good plaques. Assessment & Plan (03/10/2023 2:17 PM OYSTER GROWER): Status post percutaneous EVAR. CT shows stent [...] point. Primary hypertension 11/03/2022 Assessment & Plan (03/07/2025 3:07 PM OYSTER GROWER): Chronic and stable. Continue losartan Assessment & Plan (11/17/2022 9:53 AM CDT): Hypertension chronic and controlled. Continue amlodipine. Assessment & Plan (11/03/2022 10:43 AM CDT): Hypertension chronic and controlled. Continue amlodipine. Mixed hyperlipidemia 11/03/2022 Assessment & Plan (03/07/2025 3:06 PM OYSTER GROWER): Stable and controlled. Continue Lipitor Assessment & Plan (11/17/2022 9:54 AM CDT): Hyperlipidemia chronic and controlled. Continue Lipitor. Assessment & Plan (11/03/2022 10:43 AM CDT): Hyperlipidemia chronic and controlled. Continue Lipitor 20 mg daily. Arthritis 10/25/2022 Encounters Date Type Department Care Team Description 03/07/2025 1:30 PM OYSTER GROWER Office Visit [facility] Medical [facility] Vascular and Vein Surgery [address] [place] [address] [address] [place] [address] Jenni David NP Infrarenal abdominal aortic aneurysm (AAA) without rupture (Primary Dx); Primary hypertension; Mixed hyperlipidemia; Aftercare following surgery of the circulatory system 03/07/2025 12:27 PM OYSTER GROWER - 03/07/2025 11:59 PM OYSTER GROWER Hospital Encounter [facility] Medical Office Building [address] [place] [address] [address] [place] [address] Aneurysm of infrarenal abdominal aorta, unspecified whether ruptured Discharge Disposition: Discharge to home or self care 02/19/2025 Telephone [facility] Vascular and Vein Surgery [address] [place] [address] [address] [place] [address] Elliott Nicholson MD from Last 3 Months Immunizations Immunization Administration [...] Cessation:Counseling Given: Not Answered Social Connection and Isolation Panel Answer Date Recorded In a typical week, how many times do you talk on the phone with family, friends, or neighbors? More than three times a week 11/30/2022 How often do you get togethe r with friends or relatives? More than three times a week 11/30/2022 How often do you attend chur ch or christian services? Never 11/30/2022 Do you belong to any clubs o r organizations such as jain groups, unions, fraternal or athletic groups, or [...] place to sleep or slept in a [place] [facility] [place] facility (including now)? No 11/30/2022 Personal Safety Answer Date Recorded Have you ever been in or are you currently in a harmful physical or emotional relationship or is someone making you feel afraid or unsafe? Denies 11/30/2022 Sex and Gender Information Value Date Recorded Sex Assigned at Not on file Legal Sex Male 11:39 AM OYSTER GROWER Gender Identity Not on file Sexual Orientation Not on file Last Filed Vital Signs Vital Sign Reading Time Taken Comments Blood Pressure 114/62 03/07/2025 1:24 PM OYSTER GROWER Pulse 74 03/07/2025 1:24 PM OYSTER GROWER Temperature 36.6 C (97.9 F) 12/01/2022 11:14 AM CDT Respiratory Rate 18 09/16/2023 10:54 AM CDT Oxygen Saturation 94% 10/11/2023 1:20 PM CDT Inhaled Oxygen Concentration - - Weight 77.6 kg (171 lb) 03/07/2025 1:24 PM OYSTER GROWER Height 172.7 cm (5' 8) 03/07/2025 1:24 PM OYSTER GROWER Body Mass Index 26 03/07/2025 1:24 PM OYSTER GROWER Plan of Treatment Health Maintenance Due Date Last Done Comments Depression Screening 1945 Hepatitis C Screening 1945 Hepatitis B Screening 08/26/1965 Zoster Vaccine (1 of 2) 08/26/1997 Well Visit 65+ 08/26/2012 Fall Risk Assessment 12/02/2023 12/01/2022 Covid-19 Vaccine (2024-2 6 season) 2024 01/23/2024, 01/23/2024, 02/07/2023, Additional history exists Influenza Vaccine (#1) 2024 DTaP/Tdap/Td Vaccine (2 - Td or Tdap) 03/28/2031 03/28/2021 Pneumococcal vaccine 65+ Completed 09/13/2021 Abdominal Aortic Aneurysm (A AA) Screen Completed 03/07/2025, 03/07/2025, 08/17/2024, Additional history exists Medical Devices Implanted Type Area Brakes Inspector Device Identifier Shelf Expiration Date Model / Serial / Lot Treo Stent-Graft System Implanted:Qt y: 1 on 11/30/2022 by Elliott Nicholson MD at [facility] Endoprosthesis Left: Iliac [employer] 11/02/2025 28-L2-1 3-140U / / [id number] Treo Abdominal Stent Graft System Implanted:Qt y: 1 on 11/30/2022 by Elliott Nicholson MD at [facility] Graft N/A: Abdominal Aorta [employer] [id number] 02/29/2024 28-C2-3 0-040U / / [id number] Description:Aortic Cuff [employer] Device Clsr Perclose Prostyle Sut-Mediatd Closure-Repa ir Sys [id number] - [id number] Implanted:Qt y: 5 on 11/30/2022 by Elliott Nicholson MD at [facility] Bilateral: Groin [employer] 06/18/2024 [id number] / / [id number] Treo Stent-Graft System Implanted:Qt y: 1 on 11/30/2022 by Elliott Nicholson MD at [facility] N/A: Aorta [employer] 07/23/2023 28-B2-3 0-080U / / [id number] [employer] Johanny Stent Graft Iliac Leg Extension [id number] Treo Polyester Nitinol 37-I5-43-120 u - [id number] Implanted:Qt y: 1 on 11/30/2022 by Elliott Nicholson MD at [facility] Right: Iliac [employer] Johanny 10/16/2025 28-L2-1 3-120U / / [id number] Procedures Procedure Name Priority Date/Time Associated Diagnosis Comments CT ABDOMEN PELVIS W WO CONTRAST Schedule Routine, Read Routine (OP Routine) 08/17/2024 10:03 AM CDT from Last 3 Months or Most Recently Relevant to Health Maintenance Results * CT Abdomen Pelvis W WO Contrast (08/17/2024 10:03 AM CDT) Anatomical Region Laterality Modality Body N/A Computed Tomogra phy us Historical Provider MD CHU CT PROCEDURES Final R esult from Last 3 Months or Most Recently Relevant to Health Maintenance Insurance [facility] Advance Directives For more information, please contact: [phone] * Full Code (Latest Code Status on File) Date Activated Date Inactivated Comments 11/30/2022 1:56 PM 12/01/2022 8:10 PM Care Teams Senior Payroll Manager Relationship Specialty Start Date End Date Marvin Coulter DO [address] [place] [address] [address] [place], [place] [id number] PCP - General Family Medicine 10/21/22 Elliott Nicholson MD [address] [address] [place] [address] Surgeon Vascular Surgery 11/11/22
[2025-03-08 12:54] LABS: Hematocrit 44.0 % (42.0-52.0); Hemoglobin 14.2 g/dL (14.0-18.0); Immature Granulocyte Percent A 0.3 % (0-0.5); Lymphocytes Absolute Auto 2.24 K/mm3 (0.9-3.2); Mean Corpuscular HGB Conc 32.3 g/dl (32-36); Mean Corpuscular Hemoglobin 30.7 pg (26-34); Mean Corpuscular Volume 95.2 fl (80-100); Nucleated Red Blood Cells Absolute Auto 0.000 K/mm3 (0.0-0.012); Nucleated Red Blood Cells Perc 0.0 % (0.0-0.2); Platelet Count Result 158 k/mm3 (150-375); Red Blood Count 4.62 M/mm3 (4.6-6.20); White Blood Count 7.7 K/mm3 (4.5-10.0)
[2025-03-08 13:04] LABS: Hemoglobin A1C 6.2 % (<5.7)
[2025-03-08 13:06] LABS: Alanine Aminotransferase 18 U/L (6-50); Albumin Level 4.2 g/dL (3.5-5.1); Alkaline Phosphatase 92 U/L (38-126); Anion Gap 7 mmol/L (4-12); Aspartate Amino Transferase 53 U/L (17-59); Bilirubin,Total 0.6 mg/dL (0.2-1.3); Blood Urea Nitrogen 16 mg/dL (9-20); Calcium 9.0 mg/dL (8.4-10.2); Carbon Dioxide 28 mmol/L (22-30); Chloride 106 mmol/L (98-107); Estimated Glomerular Filt Rate 54; Glucose 116 mg/dL (65-110); Potassium 4.7 mmol/L (3.4-5.0); Sodium 141 mmol/L (137-145); Total Protein 7.6 g/dL (6.3-8.2)
[2025-03-08 13:24] LABS: Add Urine Microscopic? YES; Appearance Urine Clear (Clear); Glucose Urine UA Negative (Negative); Leukocyte Esterase Ur Trace LEU/UL (Negative); Nitrate Urine Negative (Negative); Non Pathogenic Casts 0-2; Specific Grav Ur 1.024 (1.001-1.035)
== END 2025-03-08 11:35 | disposition home or self-care (01) ==
LOC: ANHGOSHLAB 11:35
PROVIDERS: PCP Internal Medicine; Visit Provider Internal Medicine
DX: R80.9 Proteinuria, unspecified (principal); E16.2 Hypoglycemia, unspecified; I12.9 Hypertensive chronic kidney disease with stage 1 through stage 4 chronic kidney disease, or unspecified chronic kidney disease; N18.31 Chronic kidney disease, stage 3a
CPT/HCPCS: 36415; 80053; 81001; 83036; 85025